=== PATIENT | female | born 2000 | race Caucasian/White ===

== ENCOUNTER → 2021-12-03 10:34 | Outpatient (CLI) | payer OTHER, SELFPAY ==
--- NOTE | 2021-12-03 10:40 | DI.US.S_ITS ---
PROCEDURE: US OB >= 14 WEEKS FETUS INDICATIONS: ROUNTINE SCAN OUTSIDE/PRIOR DATING DATA: Last menstrual period (LMP): May 30, 2022. LMP-based estimated date of delivery (MARCIA): March 06, 2022. First dating scan (date and location): December 03, 2021. Estimated date of delivery (MARCIA) from first dating scan: February 20, 2022. TECHNIQUE: Real-time scanning was performed of the fetus, with image documentation and biometric measurements. COMPARISON: None. FINDINGS: General: A single living intrauterine gestation is present. Presentation: Cephalic. Placenta: Placental position is anterior , without previa. Amniotic fluid index: 9.8 cm, normal range is 5-24 cm. Single deepest vertical pocket is 5.3 cm. heart rate: 128 beats per minute. Maternal cervical canal: 4.7 cm long. Normal lower limit is 2.5 cm. biometrics: Biparietal diameter: 7.6 cm Head circumference: 27.3 cm Abdominal circumference: 23.1 cm Femur length: 5 cm Composite gestational age from present scan: 28 weeks, 5 days Estimated weight and percentile: 1115 g +/-165 g; 79th percentile Anatomic survey: Neuro: Ventricles are non-dilated at less than 10 mm. Cisterna magna is normal at 3-11 mm. Cerebellum is normal in size and morphology. Nuchal skin fold: Not appropriate for gestational age. Face: Nose and lips, facial profile are normal. Spine: No evidence for spina bifida. Heart: 4-chambered heart is present, with normal ventricular outflow tracts. Diaphragm: Diaphragm is intact. Stomach: Left-sided stomach is present. Kidneys: No hydronephrosis. Normal is less than 5 mm in 2nd trimester, less than 7 mm in 3rd trimester. Cord: 3-vessel cord has orthotopic insertion. Bladder: Normal in size. Extremities: All 4 extremities identified. IMPRESSION: Live single intrauterine gestation as detailed above. We strive to produce accurate, complete, and clear reports of imaging services. To assist us in improving patient care, this report was composed using standard report templates and voice recognition software. Therefore, it may contain abnormal punctuation, insertions and/or omissions. Occasional wrong-word or sound-alike substitutions may occur. Though we review the report and make efforts to correct it, we do recommend that the report be read carefully in proper context to recognize any text inaccuracies. Dictated by: Juan Jose Danielle M.D. on 12/03/2021 at 13:41 Approved by: Juan Jose Danielle M.D. on 12/03/2021 at 13:44
== END ==
PROVIDERS: Referring Provider Family Medicine; Visit Provider Family Medicine
DX: Z34.93 Encounter for supervision of normal pregnancy, unspecified, third trimester (principal); Z3A.28 28 weeks gestation of pregnancy
CPT/HCPCS: 76811

== ENCOUNTER → 2021-12-05 11:44 | Outpatient (CLI) | payer OTHER, SELFPAY ==
[2021-12-05 15:02] LABS: GTT (PREG) 1 Hour PP 50gm Dose 114 mg/dL (76-139)
== END ==
PROVIDERS: Referring Provider Family Medicine; Visit Provider Family Medicine
DX: Z34.02 Encounter for supervision of normal first pregnancy, second trimester (principal); Z3A.28 28 weeks gestation of pregnancy
CPT/HCPCS: 36415; 82950

== ENCOUNTER → 2021-12-12 15:09 | Outpatient (CLI) | payer OTHER, SELFPAY ==
--- NOTE | 2022-01-02 08:45 | P.HOLT.S_ITS ---
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 & Results Date Patient Seen: 12/12/21 Requesting provider: Danielle Joseph Indication: Palpitations Duration of monitoring (days): 14 Diary information: There were 16 patient triggered events and 7 patient diary entries Patient triggered events were variably associated with (within 45 seconds) sinus rhythm, PACs, PVCs, SVT, ventricular bigeminy, Wenckebach block, and an ectopic atrial rhythm Patient diary events were associated with sinus rhythm only Data: Minimum heart rate identified was 49 beats per minute at 00:07 on 12/17/2021 Maximum sinus heart rate was 150 beats per minute at 11:16 on 12/20/2021 Less than 1% of identified beats were ventricular or supraventricular ectopic in origin, which would classify them as rare. There was 1 run of SVT that was 12 beats in duration at a rate of 141 beats per minute which might suggest atrial tachycardia rather than true SVT Ectopic atrial rhythm was also noted There were episodes of second-degree AV block Mobitz type 1 or Wenckebach block as well There were no pauses of 3 seconds or longer or episodes of atrial fibrillation identified on this study Impression: Patient with rare PVCs and even more rare PACs. Patient in addition had other variable rhythm abnormalities as noted above all extremely rare and not felt to be serious or concerning. Patient's sense of palpitations based on her triggered events are not clearly associated with any one particular dysrhythmia and certainly there is no evidence of any significant dysrhythmias on this study Clinical correlation suggested
== END ==
PROVIDERS: PCP Family Medicine; Referring Provider Family Medicine; Visit Provider Family Medicine
DX: R00.2 Palpitations (principal)
CPT/HCPCS: 93246; 93248

== ENCOUNTER 2021-12-22 14:37 | Outpatient (CLI) | payer OTHER, SELFPAY ==
--- NOTE | 2021-12-22 15:24 | PM.OBTRLD ---
Visit Information Visit Information Date of evaluation: 12/22/21 Primary OB Provider: Danielle Joseph On-call OB Provider: Katie Wagner Reason for Evaluation: Yes rupture of membranes Comments/Additional reasons for admission: 21 year old at 30+6 weeks gestation with concern for SROM. Denies contractions or bleeding, good FM. She has had more mucusy discharge today with a gush a couple hours prior to arrival and ongoing wetness. Vital Signs Vital Signs: T 37.1 BP 119/74 P 85 PFSH Medical History (Updated 12/22/21 @ 15:26 by Katie Wagner DO) Anxiety Asthma Depression Low vitamin D level PTSD (post-traumatic stress disorder) Surgical History (Updated 10/31/21 @ 14:55 by Kylee Blunt RN) History of wisdom tooth extraction Family History (Updated 11/01/21 @ 08:34 by Kylee Blunt RN) Mother Celiac disease Sister Kidney stones Grandfather Cancer Grandmother Cancer Grandfather Thyroid cancer Diabetes mellitus Unknown Cervical cancer Social History marital status: number of children: 0 household members: spouse lives independently: Yes housing: apartment pets and animals: Yes (Dogs, aware Toxoplasmosis) education level: college occupational status: employed current occupational exposures/hazards: No special swetha needs: No seatbelt use: always water heater temp set < 120 deg: Yes working smoke detector in home: Yes fire extinguisher in home: Yes carbon monox detector in home: Yes firearms in home: No do you feel safe at home: Yes Smoking Status: Never smoker second hand exposure: No alcohol intake: former substance use type: marijuana (occasional - anxiety) during the past year weight has: decreased > 10 lbs (15-20, stress) well-balanced diet: rarely or never daily servings fruits/ve-1 caffeine: No Type(s) of exercise: walking Evaluation Evaluation Baseline heart rate: 130 Variability: Moderate (11-25) monitor accelerations: Present Monitor Decelerations: Absent Category of Tracing: Reactive Diagnosis, Plan/Disposition Final Diagnosis (1) 30 weeks gestation of : Status: Acute Plan/Disposition Plan: Amnisure negative, NST reactive. Follow up in clinic as scheduled or return sooner if needed. OB Disposition: home
== END 2021-12-22 16:00 | disposition home or self-care (01) ==
LOC: OB 12-26 14:01
PROVIDERS: PCP Family Medicine; Referring Provider Family Medicine; Visit Provider Family Medicine
DX: Z03.71 Encounter for suspected problem with amniotic cavity and membrane ruled out (principal); Z3A.30 30 weeks gestation of pregnancy
CPT/HCPCS: 59025; 84112; G0378; G0379

== ENCOUNTER → 2022-01-30 14:25 | Outpatient (CLI) | payer OTHER, SELFPAY ==
[2022-01-31 15:22] LABS: Strep Grp B PCR NEG for Grp B Strep
== END ==
PROVIDERS: PCP Family Medicine; Visit Provider Family Medicine
DX: Z34.02 Encounter for supervision of normal first pregnancy, second trimester (principal); Z36.85 Encounter for antenatal screening for Streptococcus B; Z3A.36 36 weeks gestation of pregnancy
CPT/HCPCS: 87653

== ENCOUNTER 2022-02-07 11:37 | Observation (INO) | payer OTHER, SELFPAY ==
--- NOTE | 2022-02-07 17:16 | PM.OBTRLD ---
Visit Information Visit Information Date of evaluation: 02/07/22 Primary OB Provider: Danielle Joseph On-call OB Provider: Alen Card Reason for Evaluation: Yes rule out labor Comments/Additional reasons for admission: Taniya is a 21 yo MARCIA [birth year][address] [facility] with cramping after slipping and falling yesterday and landing on her derriere. She did not experience any abdominal trauma and since the slip she has had normal movement. She has started having cramping earlier today and presents for evaluation. She denies bleeding or leakage of fluid. [facility] Medical History (Updated 12/22/21 @ 15:26 by Katie Wagner DO) Anxiety Asthma Depression Low vitamin D level PTSD (post-traumatic stress disorder) Surgical History (Updated 10/31/21 @ 14:55 by Kylee Blunt RN) History of wisdom tooth extraction Family History (Updated 11/01/21 @ 08:34 by Kylee Blunt RN) Mother Celiac disease Sister Kidney stones Grandfather Cancer Grandmother Cancer Grandfather Thyroid cancer Diabetes mellitus Unknown Cervical cancer Social History marital status: number of children: 0 household members: spouse lives independently: Yes housing: apartment pets and animals: Yes (Dogs, aware Toxoplasmosis) education level: college occupational status: employed current occupational exposures/hazards: No special swetha needs: No seatbelt use: always water heater temp set < 120 deg: Yes working smoke detector in home: Yes fire extinguisher in home: Yes carbon monox detector in home: Yes firearms in home: No do you feel safe at home: Yes Smoking Status: Never smoker second hand exposure: No alcohol intake: former substance use type: marijuana (occasional - anxiety) during the past year weight has: decreased > 10 lbs (15-20, stress) well-balanced diet: rarely or never daily servings fruits/ve-1 caffeine: No Type(s) of exercise: walking Evaluation Evaluation Baseline heart rate: 135 Variability: Moderate (11-25) monitor accelerations: Present Monitor Decelerations: Absent Contraction Frequency (minutes): 3 Uterine Contraction Intensity: Mild Category of Tracing: Reactive Status: Category l Cervical dilation (cm): 0 Cervical effacement (%): 60 station: -1 Diagnosis, Plan/Disposition Plan/Disposition Plan: During her 2 hour period of observation, her contractions have subsided and resolved. NST is reassuring and the patient was discharged with instructions to home and follow-up with her primary OB provider, Dr. Danielle Joseph. OB Disposition: home
== END 2022-02-07 13:49 | disposition home or self-care (01) ==
PROVIDERS: Admitting Provider Family Medicine; PCP Family Medicine; Referring Provider Family Medicine; Visit Provider Family Medicine
DX: O47.1 False labor at or after 37 completed weeks of gestation (principal); W01.0XXA Fall on same level from slipping, tripping and stumbling without subsequent striking against object, initial encounter; Z3A.37 37 weeks gestation of pregnancy
CPT/HCPCS: 59025; 59050; G0378; G0379

== ENCOUNTER 2022-03-05 15:32 | Inpatient (IN) | payer OTHER, SELFPAY ==
--- NOTE | 2022-03-05 15:41 | PM.OBTRLD ---
Visit Information Visit Information Date of evaluation: 03/05/22 Primary OB Provider: Danielle Joseph Reason for Evaluation: Yes other Comments/Additional reasons for admission: 21yo at 41w2d here for NST for post-dates. No vaginal bleeding, LOF, contractions. Feeling baby move regularly. [facility] Medical History (Updated 03/05/22 @ 15:42 by Danielle Joseph MD) Anxiety Asthma Depression Low vitamin D level PTSD (post-traumatic stress disorder) Surgical History (Updated 10/31/21 @ 14:55 by Kylee Blunt, RN) History of wisdom tooth extraction Family History (Updated 11/01/21 @ 08:34 by Kylee Blunt, RN) Mother Celiac disease Sister Kidney stones Grandfather Cancer Grandmother Cancer Grandfather Thyroid cancer Diabetes mellitus Unknown Cervical cancer Social History marital status: number of children: 0 household members: spouse lives independently: Yes housing: apartment pets and animals: Yes (Dogs, aware Toxoplasmosis) education level: college occupational status: employed current occupational exposures/hazards: No special swetha needs: No seatbelt use: always water heater temp set < 120 deg: Yes working smoke detector in home: Yes fire extinguisher in home: Yes carbon monox detector in home: Yes firearms in home: No do you feel safe at home: Yes Smoking Status: Never smoker second hand exposure: No alcohol intake: former substance use type: marijuana (occasional - anxiety) during the past year weight has: decreased > 10 lbs (15-20, stress) well-balanced diet: rarely or never daily servings fruits/ve-1 caffeine: No Type(s) of exercise: walking Evaluation Evaluation Baseline heart rate: 120 Variability: Moderate (11-25) monitor accelerations: Present Monitor Decelerations: Absent Category of Tracing: Reactive Diagnosis, Plan/Disposition Final Diagnosis (1) Post-dates : Status: Acute Plan/Disposition Plan: 21yo at 41w2d here for NST for post-dates. NST reactive. Stable for d/c home. Plan on IOL tomorrow morning. OB Disposition: home
--- NOTE | 2022-03-05 15:47 | DI.US.S_ITS ---
PROCEDURE: US OB FOLLOW UP INDICATIONS: growth, KEO OUTSIDE/PRIOR DATING DATA: Last menstrual period (LMP): 05/30/2022. LMP-based estimated date of delivery (MARCIA): 03/06/2022. First dating scan (date and location): 12/03/2021. Estimated date of delivery (MARCIA) from first dating scan: 02/20/2022. TECHNIQUE: Real-time scanning was performed of the fetus, with image documentation and biometric measurements. COMPARISON: 12/03/2021. FINDINGS: General: A single living intrauterine gestation is present. Presentation: Cephalic. Placenta: Placental position is anterior, without previa. Amniotic fluid index: 16.3 cm, normal range is 5-24 cm. Single deepest vertical pocket is 6.4 cm. heart rate: 127 beats per minute. Maternal cervical canal: Not seen. biometrics: Biparietal diameter: 9.6 cm, 39 weeks 2 days Head circumference: 35.9 cm, could not be calculated. Abdominal circumference: 35.2 cm, 39 weeks 1 day Femur length: 7.6 cm, 38 weeks 4 days Clinically estimated gestational age: 41 weeks 6 days Composite gestational age from present scan: 39 weeks 0 days Estimated weight: 3766 g IMPRESSION: 1. So living intrauterine at 39 weeks 0 days based on today's ultrasound. Estimated weight 3766 g. Cephalic position. 2. Normal placenta and amniotic fluid. We strive to produce accurate, complete, and clear reports of imaging services. To assist us in improving patient care, this report was composed using standard report templates and voice recognition software. Therefore, it may contain abnormal punctuation, insertions and/or omissions. Occasional wrong-word or sound-alike substitutions may occur. Though we review the report and make efforts to correct it, we do recommend that the report be read carefully in proper context to recognize any text inaccuracies. Dictated by: Nicholas Clark M.D. on 03/05/2022 at 16:48 Approved by: Nicholas Clark M.D. on 03/05/2022 at 16:55
[2022-03-05 17:02] LABS: Add Manual Diff / Slide Review NO; Basophils Absolute Auto 100 /uL (0-100); Basophils Percent Auto 0.9 % (0-2); Eosinophils Absolute Auto 0 /uL (0-450); Eosinophils Percent Auto 0.5 % (2-4); Hematocrit 30.6 % (36-46); Hemoglobin 10.6 g/dL (12.0-16.0); Lymphocytes Absolute Auto 1800 /uL (1100-4500); Lymphocytes Percent Auto 24.3 % (25-40); Mean Corpuscular HGB Conc 34.5 % (30-36); Mean Corpuscular Hemoglobin 29.5 PG (26-34); Mean Corpuscular Volume 85.6 fL (80-100); Monocytes Absolute Auto 500 /uL (0-900); Monocytes Percent Auto 6.9 % (3-14); Neutrophils Absolute Auto 4900 /uL (1500-7000); Neutrophils Percent Auto 67.4 % (50-75); Platelet Count 196 X10^3/uL (150-400); Red Blood Cell Count 3.58 X10^6/uL (4.0-5.2); Red Cell Distribution Width 13.3 % (11.6-14.8); White Blood Cell Count 7.2 X10^3/uL (4.5-11.0)
[2022-03-05 17:14] LABS: Alanine Aminotransferase 13 IU/L (<35); Albumin 3.6 g/dL (3.5-5.0); Albumin Globulin Ratio 1.1 (1.0-2.8); Alkaline Phosphatase 148 U/L (38-126); Aspartate Aminotransferase 21 IU/L (14-36); BUN Creatinine Ratio 9.8 (6-22); Bilirubin Total 0.4 mg/dL (0.2-1.3); Blood Urea Nitrogen 4 mg/dL (7-17); Calcium 8.5 mg/dL (8.4-10.2); Carbon Dioxide 23 mmol/L (22-32); Chloride 107 mmol/L (98-107); Estimated Glomerular Filt Rate > 60 mL/min (>60); Globulin 3.2 g/dL (1.7-4.1); Glucose 67 mg/dL (70-100); HEMOLYSIS 24 (0-50); Potassium 3.3 mmol/L (3.4-5.1); Sodium 138 mmol/L (137-145); Total Protein 6.8 g/dL (6.3-8.2)
[2022-03-05 17:24] VITALS: BP 155/92; PULSE 72
[2022-03-05] MEDS: LABETALOL 100 MG TABLET PO (17:24)
[2022-03-05 17:58] LABS: Creatinine Urine Random 35.8 mg/dL; Protein (Total) Urine Random 18 mg/dL (0-12)
--- NOTE | 2022-03-05 20:34 | PM.OBHP.IH.1 ---
OB HPI Date/Time Date of admission: 03/05/22 Date Patient Seen: 03/05/22 Time Patient Seen: 20:35 History of Present Condition Chief complaint: NST MARCIA Calculator Estimated Delivery Date Method Current WG Current Estimate 02/24/22 Manual 41w 2d Final MARCIA - MERI Other Estimates 03/06/22 LMP (Uncertain) 39w 6d 02/24/22 Ultrasound #1 41w 2d Estimated Gestational Age (weeks): 41w2d : 1 Para: 0 Narrative: Pt is a 21yo at 41w2d who presented for post-dates NST. She is feeling her baby move regularly. Mild intermittent cramping. No vaginal bleeding, LOF. She denies headaches, vision changes, RUQ pain. She did have significant swelling 2 days ago, now improved. The pt had an uncomplicated . care: good care, initiated at week # and pounds weight gain Dating criteria OB: based on 1st trimester US only Ultrasounds: normal 1st trimester US and normal mid trimester US Obstetrical complications: none Medical complications OB: none Preadmission Labs Last OB Lab Results: Hematocrit 30.6 % (36-46) L 03/05/22 16:40 Hemoglobin 10.6 g/dL (12.0-16.0) L 03/05/22 16:40 Glucose 1 Hour 114 mg/dL (76-139) 12/05/21 12:50 Group B Streptococcus (PCR) Neg for grp b strep 01/30/22 14:25 -: Chlamydia screen: negative, Gonorrhea screen: negative and Urine: negative -: PAP smear: Normal External Labs Blood type OB HPI: O (+) positive -: Antibody screen: negative, HBsAG: negative, HIV: negative, RPR/VDLR: negative, Cystic fibrosis screen: negative, GBS status: negative and Urine: negative -: Rubella: immune and Varicella: not immune HCAB: negative Evaluation Evaluation Baseline heart rate: 120 Variability: Moderate (11-25) monitor accelerations: Present Monitor Decelerations: Absent Status: Category l PFSH Medical History (Updated 03/05/22 @ 15:42 by Danielle Joseph MD) Anxiety Asthma Depression Low vitamin D level PTSD (post-traumatic stress disorder) Surgical History (Updated 10/31/21 @ 14:55 by Kylee M Blunt, RN) History of wisdom tooth extraction Family History (Updated 11/01/21 @ 08:34 by Kylee Blunt RN) Mother Celiac disease Sister Kidney stones Grandfather Cancer Grandmother Cancer Grandfather Thyroid cancer Diabetes mellitus Unknown Cervical cancer Social History marital status: number of children: 0 household members: spouse lives independently: Yes housing: apartment pets and animals: Yes (Dogs, aware Toxoplasmosis) education level: college occupational status: employed current occupational exposures/hazards: No special swetha needs: No seatbelt use: always water heater temp set < 120 deg: Yes working smoke detector in home: Yes fire extinguisher in home: Yes carbon monox detector in home: Yes firearms in home: No do you feel safe at home: Yes Smoking Status: Never smoker second hand exposure: No alcohol intake: former substance use type: marijuana (occasional - anxiety) during the past year weight has: decreased > 10 lbs (15-20, stress) well-balanced diet: rarely or never daily servings fruits/ve-1 caffeine: No Type(s) of exercise: walking Meds Home Medications and Allergies Home Medications Medication Instructions Recorded Confirmed Type terbinafine HCl 1 % topical cream 1 applic topical BID rash 2 weeks 10/15/21 02/20/22 Rx #15 grams prenat.vits,alessandra,fpx-dorx-pwyzq 1 tab PO DAILY 11/01/21 02/20/22 History double electric breast pump and #1 ea 12/05/21 02/20/22 Rx supplies hydrocortisone 1 % topical ointment 1 applic topical BID PRN rash 12/05/21 02/20/22 Rx #453.6 grams Allergies Allergy/AdvReac Type Severity Reaction Status Date / Time Sulfa (Sulfonamide Allergy Intermediate throat Verified 02/20/22 11:38 Antibiotics) swelling OB Exam Narrative Exam Narrative: Gen: NAD, sitting comfortably in bed, appears well CV: RRR, no murmurs Resp: clear to auscultation bilaterally Abd: soft, nontender, nondistended Ext: trace edema Neuro: 1+ patellar reflexes, no clonus Objective Labs Result Diagrams: 03/05/22 16:40 03/05/22 16:40 Labs: Laboratory Results - last 24 hr 03/05/22 03/05/22 03/05/22 16:20 16:40 16:40 WBC 7.2 RBC 3.58 L Hgb 10.6 L Hct 30.6 L MCV 85.6 MCH 29.5 MCHC 34.5 RDW 13.3 Plt Count 196 Neut % (Auto) 67.4 Lymph % (Auto) 24.3 L [place] % (Auto) 6.9 Eos % (Auto) 0.5 L Baso % (Auto) 0.9 Neut # (Auto) 4900 Lymph # (Auto) 1800 [place] # (Auto) 500 Eos # (Auto) 0 Baso # (Auto) 100 Sodium 138 Potassium 3.3 L Chloride 107 Carbon Dioxide 23 BUN 4 L Creatinine 0.41 L Estimated GFR > 60 BUN/Creatinine Ratio 9.8 Glucose 67 L Calcium 8.5 Total Bilirubin 0.4 AST 21 ALT 13 Alkaline Phosphatase 148 H Total Protein 6.8 Albumin 3.6 Globulin 3.2 Albumin/Globulin Ratio 1.1 U Random Total Protein 18 H Urine Creatinine 35.8 Protein/Creatinin Ratio 0.50 Assessment and Plan Assessment and Plan Assessment and Plan narrative: 21yo at 41w2d here for NST for postdates, found to elevated BP with elevated protein/creatinine ratio indicative of pre-eclampsia without severe features. No evidence HELLP. Did receive one dose of PO Labetalol prior to lab work returning due to BPs > 150, with good response. Due to staffing, cannot induce patient tonight. Will plan to keep patient in the hospital, and induce in the morning when staffing allows. Will continue to monitor BPs, q6hr NSTs. If BPs rising to > 160/110, will need to initiate MgSO4 and treat BP. Discussed with patient risks of untreated pre-eclampsia. She understands risks. GBS negative, Rh positive.
[2022-03-06 01:36] LABS: Add Manual Diff / Slide Review NO; Basophils Absolute Auto 0 /uL (0-100); Basophils Percent Auto 0.4 % (0-2); Eosinophils Absolute Auto 0 /uL (0-450); Hematocrit 28.4 % (36-46); Hemoglobin 9.7 g/dL (12.0-16.0); Lymphocytes Absolute Auto 2100 /uL (1100-4500); Lymphocytes Percent Auto 22.3 % (25-40); Mean Corpuscular HGB Conc 34.2 % (30-36); Mean Corpuscular Hemoglobin 29.5 PG (26-34); Mean Corpuscular Volume 86.4 fL (80-100); Monocytes Absolute Auto 400 /uL (0-900); Monocytes Percent Auto 4.8 % (3-14); Neutrophils Absolute Auto 6800 /uL (1500-7000); Neutrophils Percent Auto 72.5 % (50-75); Platelet Count 205 X10^3/uL (150-400); Red Blood Cell Count 3.29 X10^6/uL (4.0-5.2); White Blood Cell Count 9.3 X10^3/uL (4.5-11.0)
[2022-03-06 05:27] LABS: COVID19 -Nasal RAPID Negative (Negative)
--- NOTE | 2022-03-06 07:30 | PM.OBPNLAB ---
Date/Time Date Patient Seen: 03/06/22 Time Patient Seen: 07:35 Pelvic Exam Dilation (cm): 3 Effacement (%): 70 station: 0 Status status: Category l Heart Rate Baseline: 120 Monitor Accelerations: Present Monitor Decelerations: Absent Monitor Variability: Moderate Assessment and Plan Comments: 21yo at 41w2d here for NST for postdates, found to elevated BP with elevated protein/creatinine ratio indicative of pre-eclampsia without severe features.? No evidence HELLP.? Received one dose of PO Labetalol yesterday. BPs have been in good range overnight. GBS negative, Rh positive. - Expectant management, anticipate - FHT reassuring - Start pitocin, titrate as tolerated - Desires natural methods for pain control - GBS negative, no prophylaxis indicated - Continue close monitoring BPs
[2022-03-06] MEDS: OXYTOCIN PREMIX 30 UNIT/500 ML PLAST..BAG IV (11:25)
--- NOTE | 2022-03-06 18:52 | PM.OBPNLAB ---
Date/Time Date Patient Seen: 03/06/22 Time Patient Seen: 18:52 Pain Control Pain control: tolerating well Status status: Category l Heart Rate Baseline: 120 Monitor Accelerations: Present Monitor Decelerations: Absent Monitor Variability: Moderate Assessment and Plan Comments: 21yo at 41w2d here for NST for postdates, found to elevated BP with elevated protein/creatinine ratio indicative of pre-eclampsia without severe features.? No evidence HELLP.? Received one dose of PO Labetalol yesterday.? BPs have been in good range overnight.? On pitocin, titrated to maximum of 3 mU. This unfortunately had to be stopped due to staffing. Will plan to restart IOL once staffing allows, hopefully later this evening. GBS negative, Rh positive.
[2022-03-07] VITALS (7 sets, daily range): BP systolic 111–148; BP diastolic 59–84; PULSE 65–92; RESP 11–26; TEMP 37.1; O2SAT 100
[2022-03-07] MEDS: OXYTOCIN PREMIX 30 UNIT/500 ML PLAST..BAG IV (02:07)
--- NOTE | 2022-03-07 05:38 | PM.OBPNLAB ---
Date/Time Date Patient Seen: 03/07/22 Time Patient Seen: 05:38 Pain Control Pain control: tolerating well Pelvic Exam Dilation (cm): 5 Effacement (%): 50 station: -1 Comments: as per nursing Contractions Contraction frequency (min): 3 Status status: Category l Heart Rate Baseline: 120 Monitor Accelerations: Present Monitor Decelerations: Prolonged Monitor Variability: Moderate Assessment and Plan Comments: 21yo at 41w2d here for NST for postdates, found to elevated BP with elevated protein/creatinine ratio indicative of pre-eclampsia without severe features.? No evidence HELLP.? Received one dose of PO Labetalol the day of admission. BPs since have been in excellent range. IOL initially delayed due to staffing issues. On low dose pitocin overnight, up to 5mU. Now with prolonged decel to the 60s for 3 minutes, resolved with LR bolus and position changes to the sides. FHT now recovered and reassuring again. GBS negative, Rh positive. - Close monitoring, discussed risks of with the pt - Will hold any additional pitocin for now, continue position changes with the patient. Will attempt to restart pitocin in approximately 1 hour or consider AROM. - Desires natural methods for pain control - Continue close monitoring BPs
--- NOTE | 2022-03-07 07:13 | PM.PREOP ---
Pre-operative Note COVID-19 COVID-19 status: Negative Result date/Date tested (Pos, Neg/Pending): 03/05/22 Interval Note History & Physical reviewed/Exam performed by Physician: Yes Changes to H&P: No
--- NOTE | 2022-03-07 07:17 | PM.OBPNLAB ---
Date/Time Date Patient Seen: 03/07/22 Time Patient Seen: 07:17 Pain Control Pain control: tolerating well Pelvic Exam Dilation (cm): 4 Effacement (%): 70 station: -1 Contractions Contraction frequency (min): 5 Status status: Category l Heart Rate Baseline: 120 Monitor Accelerations: Absent Monitor Decelerations: Absent Monitor Variability: Moderate Assessment and Plan Comments: 21yo at 41w4d here for NST for postdates, found to elevated BP with elevated protein/creatinine ratio indicative of pre-eclampsia without severe features.? No evidence HELLP.? Received one dose of PO Labetalol the day of admission.? BPs since have been in excellent range.? Have been unable to titrate pitocin effectively due to nonreassuring heart tones. After recent prolonged deceleration, the pt expressed interest in a primary . Discussed trial of pitocin again vs AROM with the patient in detail. She prefers to avoid the risk and wishes to proceed with primary . The risks vs benefits of surgery were discussed in detail. Risks including but no limited to bleeding/hemorrhage, infection, injury to other organs such as the bowel/bladder, and injury to the fetus. The pt agrees to blood transfusion if medically necessary. All questions were answered, and the pt signed consent which was placed in the chart. She will receive 2g Ancef prior to surgery. SCDs will be placed.
--- NOTE | 2022-03-07 07:59 | SUR.OPER ---
Supine on Padded OR bed, head on pillow, safety belt at thigh, arms secured on padded arm boards at <90 degrees abduction. Bump under right buttock. Legs uncrossed with pillow under knees, gel pad to heels, tape over blanket to lower legs.
[2022-03-07] MEDS: CEFAZOLIN 2 GM IN 0.9 % NACL 100 ML IV (08:08)
--- NOTE | 2022-03-07 08:33 | SUR.OPER ---
LIVE BABY BOY TOB 0823. BABY, BLOOD AND DAD LEFT OR WITH OB RN.
--- NOTE | 2022-03-07 08:55 | SUR.OPER ---
CORD BLOOD AND PLACENTA TO LABOR AND DELIVERY
--- NOTE | 2022-03-07 09:19 | PM.OBCS.1 ---
Operative Date/Time/Diagnoses Date of procedure: 03/08/22 Time of procedure: 08:15 Pre-op diagnosis: 41w4d gestation GBS negative Rh positive Nonreassuring heart tones Post-op diagnosis: same Procedure & Clinicians Procedure: Primary Same procedure as scheduled: Yes Indications: Nonreassuring heart tones Surgeon: Danielle Joseph Environmental Services Project Manager: Katie Wagner Anesthesia Type: Spinal Operative Notes Findings: Normal uterus, ovaries, and tubes Closure Type: primary Specimen(s): cord blood Intraoperative meds administered: Duramorph and Pitocin Applied: Catheter Estimated Blood Loss (mL): 750 Blood products transfused: none Procedure in detail: OPERATIVE COURSE: The patient was taken to the operating room where spinal anesthesia was placed. She was then prepared and draped in the normal sterile fashion in the dorsal supine position with a leftward tilt. Anesthesia was tested and found to be adequate. A Pfannensteil skin incision was then made with the scalpel and carried through to the underlying layer of fascia with the scalpel. The fascia was incised in the midline and the incision extended laterally with the Lovell scissors. The superior aspect of the fascial incision was then grasped with Karen clamps, elevated with the help of the neurosurgical physician assistant, and the underlying rectus muscles dissected off bluntly and sharply where needed. Attention was then turned to the inferior aspect of the incision which, in a similar fashion, was grasped, tented up with Karen clamps, and the rectus muscle dissected off bluntly and sharply with Lovell scissors. The rectus muscles were then in the midline, and the peritoneum was identified and entered bluntly. The peritoneal incision was then extended with good visualization of the bladder. Retraction was provided by the neurosurgical physician assistant. The bladder blade was then inserted and the vesicouterine peritoneum identified, grasped with pick-ups and entered sharply with the Metzenbaum scissors. The incision was then extended laterally and the bladder flap created digitally. The bladder blade was then reinserted and the lower uterine segment incised in a transverse fashion with the scalpel, with the neurosurgical physician assistant providing suction. The uterine incision was then extended superolaterally by pulling superolaterally on both sides. Membranes were ruptured and fluid was clear. The bladder blade was removed the infant's head was flexed out of OA position and delivered atraumatically, with fundal pressure by the neurosurgical physician assistant. The nose and mouth were suctioned with bulb suction and the cord was clamped and cut. The infant was handed off to the waiting nursing staff. Cord blood was collected for Rh status. The placenta was then delivered with gentle cord traction. The uterus was then exteriorized and cleared of all clots and debris. The uterine incision was repaired with O Vicryl in a running, locked fashion. A second layer of the same suture was used to obtain excellent hemostasis. The uterus was returned to the abdomen. The gutters were cleared of all clots. Hysterotomy was investigated and found to be hemostatic. The bladder flap was closed with 2-O Chromic. The peritoneum was closed with 3-O Vicryl. The fascia was reapproximated with O Vicryl in a running fashion. The subcutaneous tissue was reapproximated with 3-O Vicryl. The skin was closed with 4-O Vicryl. The neurosurgical physician assistant helped with retraction during closures. SPONGE AND NEEDLE COUNTS: Correct x3. DRESSING: Aquacel ANTICOAGULATION: SCDs applied prior to Surgery Preop antibiotics given (see MAR). The patient was taken to recovery room having tolerated procedure well. Complications: none [place] Baby 1: Infant Gender: Male Presentation: vertex Position: Left Occiput Anterior Placental Delivery Description: Spontaneous Cord Vessel Description: 3 Vessels score (1 min): 9 score (5 min): 9 weight: 8 lb 7.452 oz Post-operative Condition: stable Disposition: PACU Aftercare: routine postop
[2022-03-07] MEDS: MEPERIDINE 50 MG/ML INJ 25 MG IV (09:20)
[2022-03-07] MEDS: ONDANSETRON 4 MG/2 ML INJ IV (09:21)
[2022-03-07] MEDS: LACTATED RINGERS 1,000 ML 100 ML IV (11:00)
[2022-03-07] MEDS: OXYCODONE IR 5 MG TABLET PO ×2 (11:12→22:03)
[2022-03-07] MEDS: KETOROLAC 30 MG/ML VIAL IV ×2 (15:19→21:59)
[2022-03-07] MEDS: LANOLIN OINT 7 GM 1 APPLIC TOP (22:02)
[2022-03-08] MEDS: KETOROLAC 30 MG/ML VIAL IV (03:39)
[2022-03-08] MEDS: OXYCODONE IR 5 MG TABLET PO ×4 (03:41→22:56)
[2022-03-08 07:32] LABS: Add Manual Diff / Slide Review NO; Basophils Absolute Auto 0 /uL (0-100); Basophils Percent Auto 0.2 % (0-2); Eosinophils Absolute Auto 0 /uL (0-450); Eosinophils Percent Auto 0.1 % (2-4); Hematocrit 24.3 % (36-46); Hemoglobin 8.4 g/dL (12.0-16.0); Lymphocytes Absolute Auto 1500 /uL (1100-4500); Lymphocytes Percent Auto 17.6 % (25-40); Mean Corpuscular HGB Conc 34.5 % (30-36); Mean Corpuscular Hemoglobin 29.7 PG (26-34); Mean Corpuscular Volume 86.1 fL (80-100); Monocytes Absolute Auto 500 /uL (0-900); Monocytes Percent Auto 5.8 % (3-14); Neutrophils Absolute Auto 6400 /uL (1500-7000); Neutrophils Percent Auto 76.3 % (50-75); Platelet Count 152 X10^3/uL (150-400); Red Blood Cell Count 2.82 X10^6/uL (4.0-5.2); Red Cell Distribution Width 13.1 % (11.6-14.8); White Blood Cell Count 8.4 X10^3/uL (4.5-11.0)
--- NOTE | 2022-03-08 09:11 | PM.OBPN.1 ---
Subjective - OB Subjective Date Patient Seen: 03/08/22 Time Patient Seen: 07:45 Interval history: The pt reports she is feeling well this morning. She denies specific concerns. She is passing flatus. She has ambulated minimally. Her garcia remains in place and she has not yet urinated. Her lochia is decreasing appropriately. Her baby is well, and she denies any nipple pain. Her pain is well controlled. Exam Vital Signs (past 8 hours): Oxygen Delivery Method Room Air Resp Auscultation: clear to auscultation bilaterally Cardio Rate: regular rate Rhythm: regular rhythm Heart Sounds: S1 normal, S2 normal and no murmurs GI Inspection: non-distended and incision (dressing c/d/i) Palpation: soft, No guarding and tender (appropriately tender) Auscultation: normal bowel sounds Other: fundus firm and below the umbilicus Extrem Right upper extremity: no edema Objective Labs Result Diagrams: 03/08/22 05:00 03/05/22 16:40 Labs: Laboratory Results - last 24 hr 03/08/22 05:00 WBC 8.4 RBC 2.82 L Hgb 8.4 L Hct 24.3 L MCV 86.1 MCH 29.7 MCHC 34.5 RDW 13.1 Plt Count 152 Neut % (Auto) 76.3 H Lymph % (Auto) 17.6 L [place] % (Auto) 5.8 Eos % (Auto) 0.1 L Baso % (Auto) 0.2 Neut # (Auto) 6400 Lymph # (Auto) 1500 [place] # (Auto) 500 Eos # (Auto) 0 Baso # (Auto) 0 Assessment & Plan Assessment and Plan (1) Post-dates : Status: Acute Plan Comments: 21yo POD#1 s/p primary for nonreassuring FHT. Pt is doing well. - Normal postop/ care - support - Garcia out this morning, encourage ambulation Time Spent With Patient Time: Total time spent is greater than 50% in coordination of care (as documented) at patient's floor/unit and/or counseling patient: Time with patient: less than 15 minutes
[2022-03-08] MEDS: PRENATAL VIT,CALC/IRON/FOLIC 1 TABLET 1 TAB PO (09:20)
[2022-03-08] MEDS: DOCUSATE 100 MG CAPSULE 200 MG PO (09:20)
[2022-03-08] MEDS: IBUPROFEN 600 MG TABLET PO ×3 (09:20→22:55)
[2022-03-08] MEDS: ACETAMINOPHEN 325 MG TABLET 650 MG PO ×2 (14:42→22:49)
[2022-03-09] MEDS: IBUPROFEN 600 MG TABLET PO ×2 (06:06→13:04)
[2022-03-09] MEDS: OXYCODONE IR 5 MG TABLET PO ×2 (06:07→13:04)
[2022-03-09] MEDS: ACETAMINOPHEN 325 MG TABLET 650 MG PO ×2 (06:07→13:05)
[2022-03-09] MEDS: DOCUSATE 100 MG CAPSULE 200 MG PO (10:37)
[2022-03-09] MEDS: PRENATAL VIT,CALC/IRON/FOLIC 1 TABLET 1 TAB PO (10:37)
[2022-03-09 11:00] VITALS: BP 138/90; PULSE 96; RESP 18; TEMP 36.3
--- NOTE | 2022-03-09 11:03 | PM.OBDS.1 ---
Discharge Providers Provider Date of admission: 03/05/22 15:32 Discharge Date: 03/09/22 Primary care physician: Danielle Joseph MD Consults: 03/07/22 09:42 Consult to Cotton Picker Operator Routine Comment: Discharge provider: Danielle Joseph MD Summary Hospital Course Date Patient Seen: 03/09/22 Time Patient Seen: 11:03 Diagnoses: 41w4d gestation GBS negative Rh positive Pre-eclampsia without severe features Nonreassuring heart tones Hospital Course: The pt presented for post-dates NST. She was diagnosed with pre-eclampsia without severe features based on multiple elevated BPs and elevated protein/creatinine ratio. She received one dose of PO Labetalol, and her BPs remained in excellent range the remainder of her hospitalization. The pts IOL was delayed due to staffing. Pitocin was initiated, and titrated to a maximum of 3mU and then stopped due to variable decels. It was initiated later in the evening when staffing allowed. It was titrated to a maximum of 5mU and then stopped due to intermittent late decels and prolonged decel. The pt elected for primary for nonreassuring heart tones, rather than continuing to attempt IOL. She had not made any significant cervical change. The pt underwent primary , with delivery of viable baby boy, without complications. She tolerated surgery well. , there were no complications. At the time of discharge, she was voiding, ambulating, and passing flatus without difficulty. Her pain was well controlled. She is with good latch. Her lochia is decreasing appropriately. She will f/u in 1 week for incision check in clinic. Peripartum Data Infant Delivery Method: Section Procedures: Primary complications: none [place] 1: Gender: Male Disposition of : home Discharge Diagnosis (1) Post-dates : Status: Acute (2) S/P : Status: Acute (3) Pre-eclampsia: Status: Acute Status at Discharge Cognitive/behavioral status at discharge: oriented Functional status at discharge: independent ambulation Overall status at discharge: patient is progressing back to baseline Time Spent with Patient Time attestation: Total time spent providing and/or coordinating discharge services: Time spent: Greater than 30 minutes Objective Labs Result Diagrams: 03/08/22 05:00 03/05/22 16:40 Exam Vital Signs (past 8 hours): Oxygen Delivery Method Room Air Resp Auscultation: clear to auscultation bilaterally Cardio Rate: regular rate Rhythm: regular rhythm Heart Sounds: S1 normal, S2 normal and no murmurs GI Inspection: non-distended and incision (dressing c/d/i) Palpation: soft, No guarding and tender (appropriately tender) Auscultation: normal bowel sounds Other: fundus firm and below the umbilicus Extrem Right upper extremity: no edema Discharge Plan Discharge Plan Patient Disposition: Home Discharge orders & Medications Prescriptions: New acetaminophen 325 mg Tablet 650 mg PO Q6H PRN (Reason: Fever/Mild Pain (1-3)) Qty: 30 0RF docusate sodium 100 mg Capsule 200 mg PO DAILY Qty: 30 0RF ibuprofen 600 mg Tablet 600 mg PO Q6H PRN (Reason: Fever/Mild Pain (1-3)) Qty: 30 0RF oxycodone 5 mg Tablet 5 mg PO Q4H PRN (Reason: Pain, Moderate (4-6)) Qty: 30 0RF Continued hydrocortisone 1 % ointment 1 applic topical BID PRN (Reason: rash) Qty: 453.6 2RF terbinafine HCl 1 % cream 1 applic topical BID 14 Days Qty: 15 1RF Rx Instructions: Use for 2 weeks or until rash resolves. prenat.vits,alessandra,[id number] Tablet 1 tab PO DAILY (DME) double electric breast pump and supplies unknown See Rx Instructions Rx Instructions: As directed Follow up/Referrals: Danielle Joseph MD [Primary Care Provider] - 1 Week (Will schedule at baby's appointment on Friday, 03/11.) Diet/Activity/Treatments Diet: Diet as Tolerated and Regular Skin/Wound/Dressing Care Report to your healthcare provider any signs of infection, such as:: chills, fever, increased pain and unusual drainage Visit Report/Discharge Packet Instructions: DI for Visit Report Forms: Patient Portal/API, Stroke Signs & Symptoms Discharge Data Primary Care Provider: Danielle Joseph
== END 2022-03-09 13:15 | disposition home or self-care (01) | DRG 788 ==
PROVIDERS: Admitting Provider Family Medicine; PCP Family Medicine; Referring Provider Family Medicine; Visit Provider Family Medicine
PROC: (CPT 59514; principal; 2022-03-07 07:45)
DX: O48.0 Post-term pregnancy (principal); O14.04 Mild to moderate pre-eclampsia, complicating childbirth; O76 Abnormality in fetal heart rate and rhythm complicating labor and delivery; Z3A.41 41 weeks gestation of pregnancy; Z37.0 Single live birth; Z20.822 Contact with and (suspected) exposure to COVID-19
CPT/HCPCS: 36415; 59050; 59514; 59515; 76816; 80053; 82570; 84156; 85025; 86850; 86900; 86901; 87635; C9803; G0379; J0690; J1885; J2175; J2274; J2405; J2590

== ENCOUNTER 2022-03-16 21:41 | Emergency (ER) | payer OTHER, SELFPAY ==
[2022-03-16 21:52] VITALS: BP 152/84; PULSE 89; RESP 20; TEMP 36.7; O2SAT 97; BMI 22.5
[2022-03-16 22:34] LABS: Bacteria Urine Few (2-10); RBC Urine 0-1/HPF (0-5/HPF); Squamous Epithelial Cell Urine 1-5 /HPF (0-5/HPF); WBC Urine 10-30/HPF (0-5/HPF)
[2022-03-16 22:35] LABS: Culture Indicated Urine Specimen Cultured
--- NOTE | 2022-03-16 22:35 | ED_ITS ---
HPI - General Adult General Chief complaint: Hypertension Stated complaint: High BP, 177/103 Time Seen by Provider: 03/16/22 22:18 Source: patient Mode of arrival: Ambulatory History of Present Illness HPI narrative: This young woman had a baby on March 07 by for the indication of preeclampsia. She started taking labetalol 100 b.i.d. and then this last Friday the this was increased to 200 mg b.i.d.. She really has no symptoms other than just general fatigue soreness at her incision site and breast engorgement. She says she feels tired and has a very mild headache. No vision disturbance. No vomiting, no abdominal pain. She noticed that her blood pressure was quite high this evening and called the on-call provider who recommended she come to the hospital for further evaluation. Related Data Home Medications Medication Instructions Recorded Confirmed prenat.vits,alessandra,[id number] 1 tab PO DAILY 11/01/21 03/06/22 double electric breast pump and 03/06/22 03/06/22 supplies Previous Rx's Medication Instructions Recorded terbinafine HCl 1 % topical cream 1 applic topical BID rash 2 weeks 10/15/21 #15 grams hydrocortisone 1 % topical ointment 1 applic topical BID PRN rash 12/05/21 #453.6 grams acetaminophen 325 mg tablet 650 mg PO Q6H PRN Fever/Mild Pain 03/09/22 (1-3) #30 tabs docusate sodium 100 mg capsule 200 mg PO DAILY #30 caps 03/09/22 ibuprofen 600 mg tablet 600 mg PO Q6H PRN Fever/Mild Pain 03/09/22 (1-3) #30 tabs oxycodone 5 mg tablet 5 mg PO Q4H PRN Pain, Moderate 03/09/22 (4-6) #30 tabs labetalol 100 mg tablet 200 mg PO BID #120 tabs 03/13/22 Allergies Allergy/AdvReac Type Severity Reaction Status Date / Time Sulfa (Sulfonamide Allergy Intermediate throat Verified 03/16/22 21:59 Antibiotics) swelling Review of Systems Review of Systems Narrative: Complete review of systems is negative other than as noted above. Patient History Medical History (Updated 03/16/22 @ 23:52 by Hector Claudio MD) Anxiety Asthma Depression Low vitamin D level Pre-eclampsia PTSD (post-traumatic stress disorder) Surgical History (Updated 03/09/22 @ 11:03 by Danielle Joseph MD) History of wisdom tooth extraction S/P Family History (Updated 11/01/21 @ 08:34 by Kylee Blunt RN) Mother Celiac disease Sister Kidney stones Grandfather Cancer Grandmother Cancer Grandfather Thyroid cancer Diabetes mellitus Unknown Cervical cancer Social History marital status: number of children: 0 household members: spouse lives independently: Yes housing: apartment pets and animals: Yes (Dogs, aware Toxoplasmosis) education level: college occupational status: employed current occupational exposures/hazards: No special swetha needs: No seatbelt use: always water heater temp set < 120 deg: Yes working smoke detector in home: Yes fire extinguisher in home: Yes carbon monox detector in home: Yes firearms in home: No do you feel safe at home: Yes Smoking Status: Never smoker second hand exposure: No alcohol intake: former substance use type: marijuana (occasional - anxiety) during the past year weight has: decreased > 10 lbs (15-20, stress) well-balanced diet: rarely or never daily servings fruits/ve-1 caffeine: No Type(s) of exercise: walking Smoking Status: Never smoker alcohol intake frequency: 0-2 drinks per day Substance Use Type: does not use Exam Narrative Exam Narrative: GENERAL: Alert, cooperative and in no distress. HEAD: Atraumatic. Normocephalic. EYES: Sclera are clear without icterus. Extraocular movements are full. ENT: No rhinorrhea. NECK: Supple. Full range of motion. CARDIOVASCULAR: Normal rate and rhythm without murmur gallop or rub. RESPIRATORY: Clear to auscultation. Breath sounds equal bilaterally. No wheezes, rales, or rhonchi. GASTROINTESTINAL: Abdomen soft, non-tender, nondistended. EXTREMITIES: No edema, full range of motion. No obvious trauma. BACK: Normal inspection, no CVA tenderness. NEURO: Nonfocal examination, normal speech, normal gait. Brisk 3+ reflexes symmetrical at the patella bilaterally. 1+ symmetrical reflexes at the Achilles bilaterally SKIN: No rash or erythema of visible areas PSYCH: Normally oriented. Normal range of affect. Appropriate behavior Initial Vital Signs Initial Vital Signs: Vital Signs Temperature 98.1 F 03/16/22 21:52 Pulse Rate 89 08/20/22 21:52 Respiratory Rate 20 03/16/22 21:52 Blood Pressure 152/84 H 03/16/22 21:52 Pulse Oximetry 97 03/16/22 21:52 Oxygen Delivery Method 03/16/22 21:52 Course Orders Ordered: ED Orders 03/16/22 22:14 Urine Culture Stat Urine Microscopic Stat 03/16/22 22:51 CBC Auto Diff [Complete Blood Count AUTO DIFF] Stat CMP [Comprehensive Metabolic Panel] Stat Vital Signs Vital signs: Vital Signs - 8 hr 03/16/22 21:52 Temperature 98.1 F Pulse Rate 89 Respiratory Rate 20 Blood Pressure 152/84 H Pulse Oximetry 97 Oxygen Delivery Method Room Air Medical Decision Making Lab Data Result diagrams: 03/16/22 23:00 03/16/22 23:00 Labs: Lab Results 03/16/22 03/16/22 03/16/22 Range/Units 22:14 23:00 23:00 WBC 7.5 (4.5-11.0) X10^3/uL RBC 3.64 L (4.0-5.2) X10^6/uL Hgb 10.7 L (12.0-16.0) g/dL Hct 31.1 L (36-46) % MCV 85.5 (80-100) fL MCH 29.4 (26-34) PG MCHC 34.3 (30-36) % RDW 13.1 (11.6-14.8) % Plt Count 317 (150-400) X10^3/uL Neut % (Auto) 70.0 (50-75) % Lymph % (Auto) 22.1 L (25-40) % [place] % (Auto) 6.0 (3-14) % Eos % (Auto) 1.5 L (2-4) % Baso % (Auto) 0.4 (0-2) % Neut # (Auto) 5200 (4762-1038) /uL Lymph # (Auto) 1700 (1151-8379) /uL [place] # (Auto) 400 (0-900) /uL Eos # (Auto) 100 (0-450) /uL Baso # (Auto) 0 (0-100) /uL Sodium 141 (137-145) mmol/L Potassium 3.5 (3.4-5.1) mmol/L Chloride 105 (98-107) mmol/L Carbon Dioxide 27 (22-32) mmol/L BUN 11 (7-17) mg/dL Creatinine 0.58 (0.52-1.04) mg/dL Estimated GFR > 60 (>60) mL/min BUN/Creatinine Ratio 19.0 (6-22) Glucose 102 H (70-100) mg/dL Calcium 9.5 (8.4-10.2) mg/dL Total Bilirubin 0.4 (0.2-1.3) mg/dL AST 19 (14-36) IU/L ALT 15 (<35) IU/L Alkaline Phosphatase 126 (38-126) U/L Total Protein 7.3 (6.3-8.2) g/dL Albumin 4.0 (3.5-5.0) g/dL Globulin 3.3 (1.7-4.1) g/dL Albumin/Globulin Ratio 1.2 (1.0-2.8) Urine RBC 0-1/hpf (0-5/HPF) Urine WBC 10-30/hpf H (0-5/HPF) Ur Squamous Epith Cells 1-5 /hpf (0-5/HPF) Urine Bacteria Few (2-10) H (None) Ur Culture Indicated? Specimen cultured Urine Dip Bedside Urine Glucose Negative Bedside Urine Bilirubin - Negative Bedside Urine Ketone - Negative Urine Specific [place] 1.010 Bedside Urine Occult Blood +++ Bedside Urine pH 7.0 Bedside Urine Protein - Negative Bedside Urine Urobilinogen - Negative Bedside Urine Nitrite - Negative Bedside Urine Leukocytes ++ 125 Esterase Point of care testing: Urine Dip Bedside Urine Glucose Negative Bedside Urine Bilirubin - Negative Bedside Urine Ketone - Negative Urine Specific [place] 1.010 Bedside Urine Occult Blood +++ Bedside Urine pH 7.0 Bedside Urine Protein - Negative Bedside Urine Urobilinogen - Negative Bedside Urine Nitrite - Negative Bedside Urine Leukocytes ++ 125 Esterase MDM Narrative Medical decision making narrative: This young woman appears normal. She is slightly hyperreflexic at the knees but otherwise completely benign ill on a physical examination other than her blood pressure. Laboratory data is reassuring. I discussed the case with Dr. Akilah Giraldo who recommends increase labetalol up to 200 mg3 times daily Discharge Plan Departure Patient Disposition: Home Clinical Impression: hypertension Activity Restrictions/Additional Instructions: Increase your labetalol from 200 twice daily up to 200 3 times daily. Follow-up right away for severe headache, vision change, difficulty walking, right-sided upper abdominal pain, repeated vomiting. Otherwise, follow up by phone with the clinic Friday. Prescriptions: No Action labetalol 100 mg tablet 200 mg PO BID Qty: 120 2RF hydrocortisone 1 % ointment 1 applic topical BID PRN (Reason: rash) Qty: 453.6 2RF terbinafine HCl 1 % cream 1 applic topical BID 14 Days Qty: 15 1RF Rx Instructions: Use for 2 weeks or until rash resolves. prenat.vits,alessandra,[id number] Tablet 1 tab PO DAILY (DME) double electric breast pump and supplies unknown See Rx Instructions Rx Instructions: As directed acetaminophen 325 mg Tablet 650 mg PO Q6H PRN (Reason: Fever/Mild Pain (1-3)) Qty: 30 0RF docusate sodium 100 mg Capsule 200 mg PO DAILY Qty: 30 0RF ibuprofen 600 mg Tablet 600 mg PO Q6H PRN (Reason: Fever/Mild Pain (1-3)) Qty: 30 0RF oxycodone 5 mg Tablet 5 mg PO Q4H PRN (Reason: Pain, Moderate (4-6)) Qty: 30 0RF Referrals: Danielle Joseph MD [Primary Care Provider] -
[2022-03-16 23:11] LABS: Add Manual Diff / Slide Review NO; Basophils Absolute Auto 0 /uL (0-100); Basophils Percent Auto 0.4 % (0-2); Eosinophils Absolute Auto 100 /uL (0-450); Eosinophils Percent Auto 1.5 % (2-4); Hematocrit 31.1 % (36-46); Hemoglobin 10.7 g/dL (12.0-16.0); Lymphocytes Absolute Auto 1700 /uL (1100-4500); Lymphocytes Percent Auto 22.1 % (25-40); Mean Corpuscular HGB Conc 34.3 % (30-36); Mean Corpuscular Hemoglobin 29.4 PG (26-34); Mean Corpuscular Volume 85.5 fL (80-100); Monocytes Absolute Auto 400 /uL (0-900); Neutrophils Absolute Auto 5200 /uL (1500-7000); Platelet Count 317 X10^3/uL (150-400); Red Blood Cell Count 3.64 X10^6/uL (4.0-5.2); Red Cell Distribution Width 13.1 % (11.6-14.8); White Blood Cell Count 7.5 X10^3/uL (4.5-11.0)
[2022-03-16 23:21] LABS: Alanine Aminotransferase 15 IU/L (<35); Albumin Globulin Ratio 1.2 (1.0-2.8); Alkaline Phosphatase 126 U/L (38-126); Aspartate Aminotransferase 19 IU/L (14-36); Bilirubin Total 0.4 mg/dL (0.2-1.3); Blood Urea Nitrogen 11 mg/dL (7-17); Calcium 9.5 mg/dL (8.4-10.2); Carbon Dioxide 27 mmol/L (22-32); Chloride 105 mmol/L (98-107); Estimated Glomerular Filt Rate > 60 mL/min (>60); Globulin 3.3 g/dL (1.7-4.1); Glucose 102 mg/dL (70-100); HEMOLYSIS < 15 (0-50); Potassium 3.5 mmol/L (3.4-5.1); Sodium 141 mmol/L (137-145); Total Protein 7.3 g/dL (6.3-8.2)
[2022-03-17 00:13] VITALS: BP 143/78; PULSE 70; RESP 17; O2SAT 98
== END 2022-03-17 00:16 | disposition home or self-care (01) ==
PROVIDERS: Emergency Provider Family Medicine Addiction Medicine; PCP Family Medicine
DX: O16.5 Unspecified maternal hypertension, complicating the puerperium (principal)
CPT/HCPCS: 36415; 80053; 81003; 81015; 85025; 87086; 99282; 99283

== ENCOUNTER → 2022-04-17 12:50 | Outpatient (CLI) | payer OTHER, SELFPAY | PROVIDERS: PCP Family Medicine; Visit Provider Family Medicine | DX: R35.0 Frequency of micturition (principal) | CPT/HCPCS: 87086 ==

== ENCOUNTER 2022-11-15 13:00 | Outpatient (RCR) | payer OTHER, SELFPAY ==
--- NOTE | 2022-09-06 22:43 | PT.OIE ---
Current Diagnoses Dyspareunia not due to a substance or known physiological condition (09/06/22) Other specified disorders of muscle (09/06/22) Other specified disorders of urethra (09/06/22) Stress incontinence (female) (male) (09/06/22) Past Medical History (Last Updated 08/15/22 @ 13:56 by Abimbola Taylor PA-C) Anxiety Asthma Depression Low vitamin D level Pre-eclampsia PTSD (post-traumatic stress disorder) Past Surgical History (Last Updated 08/15/22 @ 13:56 by Abimbola Taylor PA-C) History of wisdom tooth extraction S/P Visit Care Team Role Provider Type Danielle Joseph MD Attending Provider Physician Family Provider Primary Care Provider Referring Provider Specialty: Family Practice Address: [address] [place] [address], [facility] Email: [email or web address] Physical Therapy Initial Evaluation PT-OP-A Visit Information Start: 09/05/22 20:22 Freq: Status: Active Protocol: Document 09/06/22 10:00 AMB (Rec: 09/06/22 10:19 AMB [id number]) Out-Patient Physical Therapy Visit Information Visit Information Visit Type Initial Evaluation Visit Start Time 09:45 Visit Stop Time 10:30 Total Visit Minutes 45 Visit Number 1 PT-OP-B Current Condition Start: 09/05/22 20:22 Freq: Status: Active Protocol: Document 09/06/22 10:00 AMB (Rec: 09/06/22 10:19 AMB [id number]) Current Condition History of Current Condition Onset Date February 2022 Current Complaints dyspareunia History of Current Condition Taniya has had painful intercourse since the of her baby in February, she has been able to have intercourse only once, and has tried multiple times. Did try dilators, but then stopped due to feeling it wasn't really helping. Sharp pain (R) over scar. Painful intercourse. Has not been doing kegels. Urethral prolapse was just recently diagnosed by urology. Was put on estrogen which she reports she doesn't like much because it has increased vaginal secretions. Personal Factors Other Personal Factors That May Effect stress/anxiety, neck pain Therapy/Recovery PT-OP-C Subjective Start: 09/05/22 20:22 Freq: Status: Active Protocol: Document 09/06/22 15:05 AMB (Rec: 09/06/22 15:13 AMB [id number]) Patient Questionnaires Pelvic Pain and Urgency/Frequency Patient Symptom Scale Pelvic Pain Score 15 PT-OP-I Pelvic Floor Start: 09/05/22 20:22 Freq: Status: Active Protocol: Document 09/06/22 15:05 AMB (Rec: 09/06/22 15:13 AMB [id number]) Pelvic Floor Assessment Urine Pelvic Floor Surgery Yes: Urinary Symptoms Dribbling After Urination,Pain Leakage Size Small Leakage Cause Cough,Sneeze Bowel Other Bowel Symptoms denies constipation/straining Pelvic Clock Pelvic Clock 12-3 Tightness Pelvic Clock 3-6 Tightness Pelvic Clock 6-9 Tightness Pelvic Clock 9-12 Tightness Pelvic Clock Other Inserted finger to DIP with significant time spent. Pt with pain with palpation at most superficial musculature, could not palpate levator ani or obturators due to patient pain. Educated pt that was trying to palpate at perineum at 6 oclock, far away from urethra, but pt continued to have pain, so did not attempt further palpation. Prolapse Urethrocele Grade 1 Prolapse Comments unable to assess for rectocele /cystocele due to pt pain. Comments Pelvic Floor Comments Unable to assess pt strength due to pt tolerance of internal assessment PT-OP-T Assessment and Plan Start: 09/05/22 20:22 Freq: Status: Active Protocol: Document 09/06/22 09:45 AMB (Rec: 09/07/22 22:39 AMB [id number]) Physical Therapy Assessment Rehab Potential Rehabilitation Potential Good Evaluation Complexity Number of Personal Factors/Comorbidities 1-2 Number of Body Systems Impaired 1-2 Clinical Presentation at Evaluation Stable Impairments Impairments Pain Goals Two Impairment stress incontinence Short Term Goal (STG) Taniya will be independent with a HEP for her pelvic pain and incontinence. STG Duration 6 weeks Coal Pipeline Operator Goal (LTG) Taniya will be able to cough without leaking urine. LTG Duration 12 weeks One Impairment dyspareunia Short Term Goal (STG) Taniya will be able to insert an internal electrode for biofeedback with 3/10 pain or less. STG Duration 6 weeks Coal Pipeline Operator Goal (LTG) Taniya will engage in the intercourse of her choice with 3/10 pain or less. LTG Duration 12 weeks Assessment Summary Assessment Taniya attends physical therapy with dyspareunia since her 6 months ago. She was recently diagnosed with urethral prolapse. Upon examination she had significant pain at the introitus. Gentle pressure on the perineum reproduced the pain that she feels when she attempts to have penetrative intercourse. Discussed with the patient that I was unable to fully examine the pelvic floor muscles as the pain was too great to palpate deeper musculature. Did not palpate urethra, but did visualize. 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 Pt will benefit from physical therapy to progressively relax and stretch pelvic floor tissues. Then we could consider strengthening given pt's prolapse and stress incontinence symptoms. Physical Therapy Plan Frequency and Duration Frequency of Treatment 1x/Week Duration of treatment (weeks) 12 Plan of Care Start Date 09/06/22 Plan of Care End Date 11/29/22 Therapeutic Interventions Therapeutic Interventions Manual Therapy,Neuromuscular Re-education,Self-Care/Home Management,Therapeutic Activities,Therapeutic Exercises Modalities Biofeedback,Electric Stimulation Next Visit Focus/Plan Next Note Type Treatment Note Next Visit Plan Begin with hip opening stretches, relaxation techniques, progress to manual therapy
--- NOTE | 2022-09-06 22:45 | PT.OPPOC ---
Addendum entered and electronically signed by Katheryn Rand, PT 09/07/22 22:45: signature needed Original Note: Physical, Occupational & Speech Therapy At [facility] Current Diagnoses Dyspareunia not due to a substance or known physiological condition (09/06/22) Other specified disorders of muscle (09/06/22) Other specified disorders of urethra (09/06/22) Stress incontinence (female) (male) (09/06/22) Visit Care Team Role Provider Type Danielle Joseph MD Attending Provider Physician Family Provider Primary Care Provider Referring Provider Specialty: Family Practice Address: [address] [place] [address], [facility] Email: [email or web address] Plan Of Care PT-OP-T Assessment and Plan Start: 09/05/22 20:22 Freq: Status: Active Protocol: Document 09/06/22 09:45 AMB (Rec: 09/07/22 22:39 AMB [id number]) Physical Therapy Assessment Rehab Potential Rehabilitation Potential Good Evaluation Complexity Number of Personal Factors/Comorbidities 1-2 Number of Body Systems Impaired 1-2 Clinical Presentation at Evaluation Stable Impairments Impairments Pain Goals Two Impairment stress incontinence Short Term Goal (STG) Taniya will be independent with a HEP for her pelvic pain and incontinence. STG Duration 6 weeks Account Support Associate Goal (LTG) Taniya will be able to cough without leaking urine. LTG Duration 12 weeks One Impairment dyspareunia Short Term Goal (STG) Taniya will be able to insert an internal electrode for biofeedback with 3/10 pain or less. STG Duration 6 weeks Account Support Associate Goal (LTG) Taniya will engage in the intercourse of her choice with 3/10 pain or less. LTG Duration 12 weeks Assessment Summary Assessment Taniya attends physical therapy with dyspareunia since her 6 months ago. She was recently diagnosed with urethral prolapse. Upon examination she had significant pain at the introitus. Gentle pressure on the perineum reproduced the pain that she feels when she attempts to have penetrative intercourse. Discussed with the patient that I was unable to fully examine the pelvic floor muscles as the pain was too great to palpate deeper musculature. Did not palpate urethra, but did visualize. 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 Pt will benefit from physical therapy to progressively relax and stretch pelvic floor tissues. Then we could consider strengthening given pt's prolapse and stress incontinence symptoms. Physical Therapy Plan Frequency and Duration Frequency of Treatment 1x/Week Duration of treatment (weeks) 12 Plan of Care Start Date 09/06/22 Plan of Care End Date 11/29/22 Therapeutic Interventions Therapeutic Interventions Manual Therapy,Neuromuscular Re-education,Self-Care/Home Management,Therapeutic Activities,Therapeutic Exercises Modalities Biofeedback,Electric Stimulation Next Visit Focus/Plan Next Note Type Treatment Note Next Visit Plan Begin with hip opening stretches, relaxation techniques, progress to manual therapy Plan of Care Dates Plan of Care Start Date 09/06/22 Plan of Care End Date 11/29/22 Electronically Signed by: Katheryn Rand, PT 09/07/22 [id number] If you are in agreement with this Plan of Care, please return a signed and dated copy. I have reviewed this Plan of Care and certify that the skilled therapy services above are required to meet the patient?s needs. Physician Signature Date Printed Name and Credentials Clinical Instructor Signature Printed Name and Credentials
--- NOTE | 2022-09-09 16:08 | PT.OTN ---
Current Diagnoses Dyspareunia not due to a substance or known physiological condition (09/09/22) Other specified disorders of muscle (09/09/22) Other specified disorders of urethra (09/09/22) Stress incontinence (female) (male) (09/09/22) Physical Therapy Treatment Note PT-OP-A Visit Information Start: 09/05/22 20:22 Freq: Status: Active Protocol: Document 09/09/22 14:31 AMB (Rec: 09/09/22 16:08 AMB [id number]) Out-Patient Physical Therapy Visit Information Visit Information Visit Type Treatment Note Visit Start Time 14:30 Visit Stop Time 15:15 Total Visit Minutes 45 Visit Number 2 PT-OP-B Current Condition Start: 09/05/22 20:22 Freq: Status: Active Protocol: Document 09/06/22 10:00 AMB (Rec: 09/06/22 10:19 AMB [id number]) Current Condition History of Current Condition Onset Date February 2022 Current Complaints dyspareunia History of Current Condition Taniya has had painful intercourse since the of her baby in February, she has been able to have intercourse only once, and has tried multiple times. Did try dilators, but then stopped due to feeling it wasn't really helping. Sharp pain (R) over scar. Painful intercourse. Has not been doing kegels. Urethral prolapse was just recently diagnosed by urology. Was put on estrogen which she reports she doesn't like much because it has increased vaginal secretions. Personal Factors Other Personal Factors That May Effect stress/anxiety, neck pain Therapy/Recovery PT-OP-C Subjective Start: 09/05/22 20:22 Freq: Status: Active Protocol: Document 09/09/22 14:31 AMB (Rec: 09/09/22 16:08 AMB [id number]) OP-PT Subjective Patient Comments Patient Comments Describes pain as tightness, didn't have too much pain after eval. PT-OP-I Pelvic Floor Start: 09/05/22 20:22 Freq: Status: Active Protocol: Document 09/06/22 15:05 AMB (Rec: 09/06/22 15:13 AMB [id number]) Pelvic Floor Assessment Urine Pelvic Floor Surgery Yes: Urinary Symptoms Dribbling After Urination,Pain Leakage Size Small Leakage Cause Cough,Sneeze Bowel Other Bowel Symptoms denies constipation/straining Pelvic Clock Pelvic Clock 12-3 Tightness Pelvic Clock 3-6 Tightness Pelvic Clock 6-9 Tightness Pelvic Clock 9-12 Tightness Pelvic Clock Other Inserted finger to DIP with significant time spent. Pt with pain with palpation at most superficial musculature, could not palpate levator ani or obturators due to patient pain. Educated pt that was trying to palpate at perineum at 6 oclock, far away from urethra, but pt continued to have pain, so did not attempt further palpation. Prolapse Urethrocele Grade 1 Prolapse Comments unable to assess for rectocele /cystocele due to pt pain. Comments Pelvic Floor Comments Unable to assess pt strength due to pt tolerance of internal assessment PT-OP-Q Treatments Start: 09/05/22 20:22 Freq: Status: Active Protocol: Document 09/09/22 14:31 AMB (Rec: 09/09/22 16:08 AMB [id number]) Therapeutic Exercises Supine Exercises piriformis stretch Reps/Minutes 30x2 butterfly- legs on wall Reps/Minutes 30x2 Other Exercises cat cow Reps/Minutes 20 Manual Therapy Treatment Soft Tissue Mobilization internal Comments started with palpation of perineum and then was able to to progress to more TrP release at levator, with most pain anteriorly, very tight on the L. PT-OP-T Assessment and Plan Start: 09/05/22 20:22 Freq: Status: Active Protocol: Document 09/09/22 14:31 AMB (Rec: 09/09/22 16:08 AMB [id number]) Physical Therapy Assessment Goals Two Impairment stress incontinence Short Term Goal (STG) Taniya will be independent with a HEP for her pelvic pain and incontinence. STG Duration 6 weeks Alf Goal (LTG) Taniya will be able to cough without leaking urine. LTG Duration 12 weeks One Impairment dyspareunia Short Term Goal (STG) Taniya will be able to insert an internal electrode for biofeedback with 3/10 pain or less. STG Duration 6 weeks Alf Goal (LTG) Taniya will engage in the intercourse of her choice with 3/10 pain or less. LTG Duration 12 weeks Assessment Summary Assessment Taniya did well with hip stretches. Tolerated more internal release but continues to be painful, worked more on levator today, stinging pain with palaption of anterior, Very weak with 1/5 pelvic floor strength. Physical Therapy Plan Frequency and Duration Frequency of Treatment 1x/Week Duration of treatment (weeks) 12 Plan of Care Start Date 09/06/22 Plan of Care End Date 11/29/22 Therapeutic Interventions Therapeutic Interventions Manual Therapy,Neuromuscular Re-education,Self-Care/Home Management,Therapeutic Activities,Therapeutic Exercises Modalities Biofeedback,Electric Stimulation Next Visit Focus/Plan Next Note Type Treatment Note Next Visit Plan Begin with hip opening stretches, relaxation techniques, progress to manual therapy
--- NOTE | 2022-09-27 16:01 | PT.OTN ---
Current Diagnoses Dyspareunia not due to a substance or known physiological condition (09/27/22) Other specified disorders of muscle (09/27/22) Other specified disorders of urethra (09/27/22) Stress incontinence (female) (male) (09/27/22) Physical Therapy Treatment Note PT-OP-A Visit Information Start: 09/05/22 20:22 Freq: Status: Active Protocol: Document 09/27/22 11:21 AMB (Rec: 09/27/22 11:58 AMB [id number]) Out-Patient Physical Therapy Visit Information Visit Information Visit Type Treatment Note Visit Start Time 11:15 Visit Stop Time 12:00 Total Visit Minutes 45 Visit Number 3 PT-OP-B Current Condition Start: 09/05/22 20:22 Freq: Status: Active Protocol: Document 09/06/22 10:00 AMB (Rec: 09/06/22 10:19 AMB [id number]) Current Condition History of Current Condition Onset Date February 2022 Current Complaints dyspareunia History of Current Condition Taniya has had painful intercourse since the of her baby in February, she has been able to have intercourse only once, and has tried multiple times. Did try dilators, but then stopped due to feeling it wasn't really helping. Sharp pain (R) over scar. Painful intercourse. Has not been doing kegels. Urethral prolapse was just recently diagnosed by urology. Was put on estrogen which she reports she doesn't like much because it has increased vaginal secretions. Personal Factors Other Personal Factors That May Effect stress/anxiety, neck pain Therapy/Recovery PT-OP-C Subjective Start: 09/05/22 20:22 Freq: Status: Active Protocol: Document 09/27/22 11:21 AMB (Rec: 09/27/22 11:58 AMB [id number]) OP-PT Subjective Patient Comments Patient Comments Did have pain for 30-60 minutes after last tx. PT-OP-I Pelvic Floor Start: 09/05/22 20:22 Freq: Status: Active Protocol: Document 09/06/22 15:05 AMB (Rec: 09/06/22 15:13 AMB [id number]) Pelvic Floor Assessment Urine Pelvic Floor Surgery Yes: Urinary Symptoms Dribbling After Urination,Pain Leakage Size Small Leakage Cause Cough,Sneeze Bowel Other Bowel Symptoms denies constipation/straining Pelvic Clock Pelvic Clock 12-3 Tightness Pelvic Clock 3-6 Tightness Pelvic Clock 6-9 Tightness Pelvic Clock 9-12 Tightness Pelvic Clock Other Inserted finger to DIP with significant time spent. Pt with pain with palpation at most superficial musculature, could not palpate levator ani or obturators due to patient pain. Educated pt that was trying to palpate at perineum at 6 oclock, far away from urethra, but pt continued to have pain, so did not attempt further palpation. Prolapse Urethrocele Grade 1 Prolapse Comments unable to assess for rectocele /cystocele due to pt pain. Comments Pelvic Floor Comments Unable to assess pt strength due to pt tolerance of internal assessment PT-OP-Q Treatments Start: 09/05/22 20:22 Freq: Status: Active Protocol: Document 09/27/22 11:21 AMB (Rec: 09/27/22 11:58 AMB [id number]) Therapeutic Exercises Supine Exercises piriformis stretch Reps/Minutes 30x2 butterfly- legs on wall Reps/Minutes 30x2 Standing Exercises hamstring against wall Reps/Minutes 30x2 Other Exercises quadruped trunk sidebending Reps/Minutes 10 cat cow Reps/Minutes 20 Manual Therapy Treatment Soft Tissue Mobilization internal Comments started with palpation of perineum and then was able to to progress to more TrP release at levator, tightness L>R PT-OP-T Assessment and Plan Start: 09/05/22 20:22 Freq: Status: Active Protocol: Document 09/27/22 11:21 AMB (Rec: 09/27/22 11:58 AMB [id number]) Physical Therapy Assessment Goals Two Impairment stress incontinence Short Term Goal (STG) Taniya will be independent with a HEP for her pelvic pain and incontinence. STG Duration 6 weeks Furniture Duster Goal (LTG) Taniya will be able to cough without leaking urine. LTG Duration 12 weeks One Impairment dyspareunia Short Term Goal (STG) Taniya will be able to insert an internal electrode for biofeedback with 3/10 pain or less. STG Duration 6 weeks Mcfp Goal (LTG) Taniya will engage in the intercourse of her choice with 3/10 pain or less. LTG Duration 12 weeks Assessment Summary Assessment Taniya continues to have pain with internal palpation, did tolerate more TrP release today. continued to encourage in regular stretching, progressed with active hamstring stretch against wall . Physical Therapy Plan Frequency and Duration Frequency of Treatment 1x/Week Duration of treatment (weeks) 12 Plan of Care Start Date 09/06/22 Plan of Care End Date 11/29/22 Therapeutic Interventions Therapeutic Interventions Manual Therapy,Neuromuscular Re-education,Self-Care/Home Management,Therapeutic Activities,Therapeutic Exercises Modalities Biofeedback,Electric Stimulation Next Visit Focus/Plan Next Note Type Treatment Note Next Visit Plan Begin with hip opening stretches, relaxation techniques, progress to manual therapy
--- NOTE | 2022-10-09 13:00 | PT.OTN ---
Current Diagnoses Dyspareunia not due to a substance or known physiological condition (10/09/22) Other specified disorders of muscle (10/09/22) Other specified disorders of urethra (10/09/22) Stress incontinence (female) (male) (10/09/22) Physical Therapy Treatment Note PT-OP-A Visit Information Start: 09/05/22 20:22 Freq: Status: Active Protocol: Document 10/09/22 08:18 AMB (Rec: 10/09/22 09:02 AMB [id number]) Out-Patient Physical Therapy Visit Information Visit Information Visit Type Treatment Note Visit Start Time 08:15 Visit Stop Time 09:00 Total Visit Minutes 45 Visit Number 4 PT-OP-B Current Condition Start: 09/05/22 20:22 Freq: Status: Active Protocol: Document 09/06/22 10:00 AMB (Rec: 09/06/22 10:19 AMB [id number]) Current Condition History of Current Condition Onset Date February 2022 Current Complaints dyspareunia History of Current Condition Taniya has had painful intercourse since the of her baby in February, she has been able to have intercourse only once, and has tried multiple times. Did try dilators, but then stopped due to feeling it wasn't really helping. Sharp pain (R) over scar. Painful intercourse. Has not been doing kegels. Urethral prolapse was just recently diagnosed by urology. Was put on estrogen which she reports she doesn't like much because it has increased vaginal secretions. Personal Factors Other Personal Factors That May Effect stress/anxiety, neck pain Therapy/Recovery PT-OP-C Subjective Start: 09/05/22 20:22 Freq: Status: Active Protocol: Document 10/09/22 08:18 AMB (Rec: 10/09/22 09:02 AMB [id number]) OP-PT Subjective Patient Comments Patient Comments Pt reports she is doing some of the stretches and that is going ok. Dribbling urine is the same. PT-OP-I Pelvic Floor Start: 09/05/22 20:22 Freq: Status: Active Protocol: Document 09/06/22 15:05 AMB (Rec: 09/06/22 15:13 AMB [id number]) Pelvic Floor Assessment Urine Pelvic Floor Surgery Yes: Urinary Symptoms Dribbling After Urination,Pain Leakage Size Small Leakage Cause Cough,Sneeze Bowel Other Bowel Symptoms denies constipation/straining Pelvic Clock Pelvic Clock 12-3 Tightness Pelvic Clock 3-6 Tightness Pelvic Clock 6-9 Tightness Pelvic Clock 9-12 Tightness Pelvic Clock Other Inserted finger to DIP with significant time spent. Pt with pain with palpation at most superficial musculature, could not palpate levator ani or obturators due to patient pain. Educated pt that was trying to palpate at perineum at 6 oclock, far away from urethra, but pt continued to have pain, so did not attempt further palpation. Prolapse Urethrocele Grade 1 Prolapse Comments unable to assess for rectocele /cystocele due to pt pain. Comments Pelvic Floor Comments Unable to assess pt strength due to pt tolerance of internal assessment PT-OP-Q Treatments Start: 09/05/22 20:22 Freq: Status: Active Protocol: Document 10/09/22 08:18 AMB (Rec: 10/09/22 09:02 AMB [id number]) Therapeutic Exercises Supine Exercises pelvic floor Supine Exercise Name iron Comments gentle contraction and gentle softening/letting go with sit to stand Manual Therapy Treatment Soft Tissue Mobilization internal Comments Able to tolerate more internal TrP release, turning finger still quite painfull.Trp release R and L levator. PT-OP-T Assessment and Plan Start: 09/05/22 20:22 Freq: Status: Active Protocol: Document 10/09/22 08:18 AMB (Rec: 10/09/22 09:02 AMB [id number]) Physical Therapy Assessment Goals Two Impairment stress incontinence Short Term Goal (STG) Taniya will be independent with a HEP for her pelvic pain and incontinence. STG Duration 6 weeks Nursing Home Goal (LTG) Taniya will be able to cough without leaking urine. LTG Duration 12 weeks One Impairment dyspareunia Short Term Goal (STG) Taniya will be able to insert an internal electrode for biofeedback with 3/10 pain or less. STG Duration 6 weeks Lens Assistant Goal (LTG) Taniya will engage in the intercourse of her choice with 3/10 pain or less. LTG Duration 12 weeks Assessment Summary Assessment Taniya is tolerating more internal work and deeper pressure, not as much pain at the introitus now, more deeper . Encouraged in gentle strengthening with focus on relaxation so that patient can move from sit to stand after toileting to try to work on dribbling after urination. Physical Therapy Plan Frequency and Duration Frequency of Treatment 1x/Week Duration of treatment (weeks) 12 Plan of Care Start Date 09/06/22 Plan of Care End Date 11/29/22 Therapeutic Interventions Therapeutic Interventions Manual Therapy,Neuromuscular Re-education,Self-Care/Home Management,Therapeutic Activities,Therapeutic Exercises Modalities Biofeedback,Electric Stimulation Next Visit Focus/Plan Next Note Type Treatment Note Next Visit Plan Begin with hip opening stretches, relaxation techniques, progress to manual therapy
--- NOTE | 2022-10-23 08:26 | PT.OTN ---
Current Diagnoses Dyspareunia not due to a substance or known physiological condition (10/23/22) Other specified disorders of muscle (10/23/22) Other specified disorders of urethra (10/23/22) Stress incontinence (female) (male) (10/23/22) Physical Therapy Treatment Note PT-OP-A Visit Information Start: 09/05/22 20:22 Freq: Status: Active Protocol: Document 10/23/22 07:34 AMB (Rec: 10/23/22 08:25 AMB [id number]) Out-Patient Physical Therapy Visit Information Visit Information Visit Type Treatment Note Visit Start Time 07:30 Visit Stop Time 08:15 Total Visit Minutes 45 Visit Number 5 PT-OP-B Current Condition Start: 09/05/22 20:22 Freq: Status: Active Protocol: Document 09/06/22 10:00 AMB (Rec: 09/06/22 10:19 AMB [id number]) Current Condition History of Current Condition Onset Date February 2022 Current Complaints dyspareunia History of Current Condition Taniya has had painful intercourse since the of her baby in February, she has been able to have intercourse only once, and has tried multiple times. Did try dilators, but then stopped due to feeling it wasn't really helping. Sharp pain (R) over scar. Painful intercourse. Has not been doing kegels. Urethral prolapse was just recently diagnosed by urology. Was put on estrogen which she reports she doesn't like much because it has increased vaginal secretions. Personal Factors Other Personal Factors That May Effect stress/anxiety, neck pain Therapy/Recovery PT-OP-C Subjective Start: 09/05/22 20:22 Freq: Status: Active Protocol: Document 10/23/22 07:34 AMB (Rec: 10/23/22 08:25 AMB [id number]) OP-PT Subjective Patient Comments Patient Comments 45-60 minutes of pain after PT last time PT-OP-I Pelvic Floor Start: 09/05/22 20:22 Freq: Status: Active Protocol: Document 09/06/22 15:05 AMB (Rec: 09/06/22 15:13 AMB [id number]) Pelvic Floor Assessment Urine Pelvic Floor Surgery Yes: Urinary Symptoms Dribbling After Urination,Pain Leakage Size Small Leakage Cause Cough,Sneeze Bowel Other Bowel Symptoms denies constipation/straining Pelvic Clock Pelvic Clock 12-3 Tightness Pelvic Clock 3-6 Tightness Pelvic Clock 6-9 Tightness Pelvic Clock 9-12 Tightness Pelvic Clock Other Inserted finger to DIP with significant time spent. Pt with pain with palpation at most superficial musculature, could not palpate levator ani or obturators due to patient pain. Educated pt that was trying to palpate at perineum at 6 oclock, far away from urethra, but pt continued to have pain, so did not attempt further palpation. Prolapse Urethrocele Grade 1 Prolapse Comments unable to assess for rectocele /cystocele due to pt pain. Comments Pelvic Floor Comments Unable to assess pt strength due to pt tolerance of internal assessment PT-OP-Q Treatments Start: 09/05/22 20:22 Freq: Status: Active Protocol: Document 10/23/22 07:34 AMB (Rec: 10/23/22 08:25 AMB [id number]) Neuro Re-Education Treatment Other Activities sEMG Details for pelvic floor relaxation Comments started at 3 and eventually got down to 1 PT-OP-T Assessment and Plan Start: 09/05/22 20:22 Freq: Status: Active Protocol: Document 10/23/22 07:34 AMB (Rec: 10/23/22 08:25 AMB [id number]) Physical Therapy Assessment Goals Two Impairment stress incontinence Short Term Goal (STG) Taniya will be independent with a HEP for her pelvic pain and incontinence. STG Duration 6 weeks Senior Living Goal (LTG) Taniya will be able to cough without leaking urine. LTG Duration 12 weeks One Impairment dyspareunia Short Term Goal (STG) Taniya will be able to insert an internal electrode for biofeedback with 3/10 pain or less. STG Duration 6 weeks Photograph Editor Goal (LTG) Taniya will engage in the intercourse of her choice with 3/10 pain or less. LTG Duration 12 weeks Assessment Summary Assessment Taniya declined internal work today, has some stomach upset. sEMG started at 3uV and with working on softening and lengthening pelvic floor cues to get down to an average of 1 . Physical Therapy Plan Frequency and Duration Frequency of Treatment 1x/Week Duration of treatment (weeks) 12 Plan of Care Start Date 09/06/22 Plan of Care End Date 11/29/22 Therapeutic Interventions Therapeutic Interventions Manual Therapy,Neuromuscular Re-education,Self-Care/Home Management,Therapeutic Activities,Therapeutic Exercises Modalities Biofeedback,Electric Stimulation Next Visit Focus/Plan Next Note Type Treatment Note Next Visit Plan Begin with hip opening stretches, relaxation techniques, progress to manual therapy
--- NOTE | 2022-10-29 13:50 | PT.OTN ---
Current Diagnoses Dyspareunia not due to a substance or known physiological condition (10/29/22) Other specified disorders of muscle (10/29/22) Other specified disorders of urethra (10/29/22) Stress incontinence (female) (male) (10/29/22) Physical Therapy Treatment Note PT-OP-A Visit Information Start: 09/05/22 20:22 Freq: Status: Active Protocol: Document 10/29/22 13:07 AMB (Rec: 10/29/22 13:50 AMB [id number]) Out-Patient Physical Therapy Visit Information Visit Information Visit Type Treatment Note Visit Start Time 13:00 Visit Stop Time 13:45 Total Visit Minutes 45 Visit Number 6 PT-OP-B Current Condition Start: 09/05/22 20:22 Freq: Status: Active Protocol: Document 09/06/22 10:00 AMB (Rec: 09/06/22 10:19 AMB [id number]) Current Condition History of Current Condition Onset Date February 2022 Current Complaints dyspareunia History of Current Condition Taniya has had painful intercourse since the of her baby in February, she has been able to have intercourse only once, and has tried multiple times. Did try dilators, but then stopped due to feeling it wasn't really helping. Sharp pain (R) over scar. Painful intercourse. Has not been doing kegels. Urethral prolapse was just recently diagnosed by urology. Was put on estrogen which she reports she doesn't like much because it has increased vaginal secretions. Personal Factors Other Personal Factors That May Effect stress/anxiety, neck pain Therapy/Recovery PT-OP-C Subjective Start: 09/05/22 20:22 Freq: Status: Active Protocol: Document 10/29/22 13:07 AMB (Rec: 10/29/22 13:50 AMB [id number]) OP-PT Subjective Patient Comments Patient Comments Pt reports had sex and was able to tolerate it. Afterwards urethral pain was significant. PT-OP-I Pelvic Floor Start: 09/05/22 20:22 Freq: Status: Active Protocol: Document 09/06/22 15:05 AMB (Rec: 09/06/22 15:13 AMB [id number]) Pelvic Floor Assessment Urine Pelvic Floor Surgery Yes: Urinary Symptoms Dribbling After Urination,Pain Leakage Size Small Leakage Cause Cough,Sneeze Bowel Other Bowel Symptoms denies constipation/straining Pelvic Clock Pelvic Clock 12-3 Tightness Pelvic Clock 3-6 Tightness Pelvic Clock 6-9 Tightness Pelvic Clock 9-12 Tightness Pelvic Clock Other Inserted finger to DIP with significant time spent. Pt with pain with palpation at most superficial musculature, could not palpate levator ani or obturators due to patient pain. Educated pt that was trying to palpate at perineum at 6 oclock, far away from urethra, but pt continued to have pain, so did not attempt further palpation. Prolapse Urethrocele Grade 1 Prolapse Comments unable to assess for rectocele /cystocele due to pt pain. Comments Pelvic Floor Comments Unable to assess pt strength due to pt tolerance of internal assessment PT-OP-Q Treatments Start: 09/05/22 20:22 Freq: Status: Active Protocol: Document 10/29/22 13:07 AMB (Rec: 10/29/22 13:50 AMB [id number]) Therapeutic Exercises Supine Exercises pelvic floor Supine Exercise Name kegel 10 on 20 off Comments NMES PT-OP-T Assessment and Plan Start: 09/05/22 20:22 Freq: Status: Active Protocol: Document 10/29/22 13:07 AMB (Rec: 10/29/22 13:50 AMB [id number]) Physical Therapy Assessment Goals Two Impairment stress incontinence Short Term Goal (STG) Taniya will be independent with a HEP for her pelvic pain and incontinence. STG Duration 6 weeks Relief Charge Nurse Goal (LTG) Taniya will be able to cough without leaking urine. LTG Duration 12 weeks One Impairment dyspareunia Short Term Goal (STG) Taniya will be able to insert an internal electrode for biofeedback with 3/10 pain or less. STG Duration 6 weeks [facility] Goal (LTG) Taniya will engage in the intercourse of her choice with 3/10 pain or less. LTG Duration 12 weeks Assessment Summary Assessment Taniya fatigued easily today. Encouraged in home pelvic floor exercises with significant focus on relaxing pelvic floor between sets. Physical Therapy Plan Frequency and Duration Frequency of Treatment 1x/Week Duration of treatment (weeks) 12 Plan of Care Start Date 09/06/22 Plan of Care End Date 11/29/22 Therapeutic Interventions Therapeutic Interventions Manual Therapy,Neuromuscular Re-education,Self-Care/Home Management,Therapeutic Activities,Therapeutic Exercises Modalities Biofeedback,Electric Stimulation Next Visit Focus/Plan Next Note Type Treatment Note Next Visit Plan Begin with hip opening stretches, relaxation techniques, progress to manual therapy
--- NOTE | 2022-11-01 13:58 | PT.OTN ---
Current Diagnoses Dyspareunia not due to a substance or known physiological condition (11/01/22) Other specified disorders of muscle (11/01/22) Other specified disorders of urethra (11/01/22) Stress incontinence (female) (male) (11/01/22) Physical Therapy Treatment Note PT-OP-A Visit Information Start: 09/05/22 20:22 Freq: Status: Active Protocol: Document 11/01/22 13:09 AMB (Rec: 11/01/22 13:58 AMB [id number]) Out-Patient Physical Therapy Visit Information Visit Information Visit Type Treatment Note Visit Start Time 13:00 Visit Stop Time 13:45 Total Visit Minutes 45 Visit Number 7 PT-OP-B Current Condition Start: 09/05/22 20:22 Freq: Status: Active Protocol: Document 09/06/22 10:00 AMB (Rec: 09/06/22 10:19 AMB [id number]) Current Condition History of Current Condition Onset Date February 2022 Current Complaints dyspareunia History of Current Condition Taniya has had painful intercourse since the of her baby in February, she has been able to have intercourse only once, and has tried multiple times. Did try dilators, but then stopped due to feeling it wasn't really helping. Sharp pain (R) over scar. Painful intercourse. Has not been doing kegels. Urethral prolapse was just recently diagnosed by urology. Was put on estrogen which she reports she doesn't like much because it has increased vaginal secretions. Personal Factors Other Personal Factors That May Effect stress/anxiety, neck pain Therapy/Recovery PT-OP-C Subjective Start: 09/05/22 20:22 Freq: Status: Active Protocol: Document 11/01/22 13:09 AMB (Rec: 11/01/22 13:58 AMB [id number]) OP-PT Subjective Patient Comments Patient Reported Progress Same PT-OP-I Pelvic Floor Start: 09/05/22 20:22 Freq: Status: Active Protocol: Document 09/06/22 15:05 AMB (Rec: 09/06/22 15:13 AMB [id number]) Pelvic Floor Assessment Urine Pelvic Floor Surgery Yes: Urinary Symptoms Dribbling After Urination,Pain Leakage Size Small Leakage Cause Cough,Sneeze Bowel Other Bowel Symptoms denies constipation/straining Pelvic Clock Pelvic Clock 12-3 Tightness Pelvic Clock 3-6 Tightness Pelvic Clock 6-9 Tightness Pelvic Clock 9-12 Tightness Pelvic Clock Other Inserted finger to DIP with significant time spent. Pt with pain with palpation at most superficial musculature, could not palpate levator ani or obturators due to patient pain. Educated pt that was trying to palpate at perineum at 6 oclock, far away from urethra, but pt continued to have pain, so did not attempt further palpation. Prolapse Urethrocele Grade 1 Prolapse Comments unable to assess for rectocele /cystocele due to pt pain. Comments Pelvic Floor Comments Unable to assess pt strength due to pt tolerance of internal assessment PT-OP-Q Treatments Start: 09/05/22 20:22 Freq: Status: Active Protocol: Document 11/01/22 13:09 AMB (Rec: 11/01/22 13:58 AMB [id number]) Manual Therapy Treatment Soft Tissue Mobilization internal Comments Able to tolerate more internal TrP release, was able to work on obterator internus today. Continued to encourage relaxation/breathing techniques. PT-OP-T Assessment and Plan Start: 09/05/22 20:22 Freq: Status: Active Protocol: Document 11/01/22 13:09 AMB (Rec: 11/01/22 13:58 AMB [id number]) Physical Therapy Assessment Goals Two Impairment stress incontinence Short Term Goal (STG) Taniya will be independent with a HEP for her pelvic pain and incontinence. STG Duration 6 weeks Half-Way Goal (LTG) Taniya will be able to cough without leaking urine. LTG Duration 12 weeks One Impairment dyspareunia Short Term Goal (STG) Taniya will be able to insert an internal electrode for biofeedback with 3/10 pain or less. STG Duration 6 weeks Half-Way Goal (LTG) Taniya will engage in the intercourse of her choice with 3/10 pain or less. PROGRESS MADE: LTG Duration 12 weeks Assessment Summary Assessment Taniya tolerated more internal releases today. Continues to have pain with internal release, but less intense than at beginning of therapy. Pt given small dilator today. Physical Therapy Plan Frequency and Duration Frequency of Treatment 2x/Week Duration of treatment (weeks) 10 Plan of Care Start Date 11/01/22 Plan of Care End Date 01/10/23 Therapeutic Interventions Therapeutic Interventions Manual Therapy,Neuromuscular Re-education,Self-Care/Home Management,Therapeutic Activities,Therapeutic Exercises Modalities Biofeedback,Electric Stimulation Next Visit Focus/Plan Next Note Type Treatment Note Next Visit Plan Begin with hip opening stretches, relaxation techniques, progress to manual therapy
--- NOTE | 2022-11-01 13:58 | PT.OPPOC ---
Physical, Occupational & Speech Therapy At [facility] Current Diagnoses Dyspareunia not due to a substance or known physiological condition (11/01/22) Other specified disorders of muscle (11/01/22) Other specified disorders of urethra (11/01/22) Stress incontinence (female) (male) (11/01/22) Visit Care Team Role Provider Type Danielle Joseph MD Attending Provider Physician Family Provider Primary Care Provider Referring Provider Specialty: Family Practice Address: [address] [place] [address] Email: [email or web address] Plan Of Care PT-OP-T Assessment and Plan Start: 09/05/22 20:22 Freq: Status: Active Protocol: Document 11/01/22 13:09 AMB (Rec: 11/01/22 13:58 AMB [id number]) Physical Therapy Assessment Goals Two Impairment stress incontinence Short Term Goal (STG) Taniya will be independent with a HEP for her pelvic pain and incontinence. STG Duration 6 weeks Channeling Machine Operator Goal (LTG) Taniya will be able to cough without leaking urine. LTG Duration 12 weeks One Impairment dyspareunia Short Term Goal (STG) Taniya will be able to insert an internal electrode for biofeedback with 3/10 pain or less. STG Duration 6 weeks Channeling Machine Operator Goal (LTG) Taniya will engage in the intercourse of her choice with 3/10 pain or less. PROGRESS MADE: LTG Duration 12 weeks Assessment Summary Assessment Taniya tolerated more internal releases today. Continues to have pain with internal release, but less intense than at beginning of therapy. Pt given small dilator today. Physical Therapy Plan Frequency and Duration Frequency of Treatment 2x/Week Duration of treatment (weeks) 10 Plan of Care Start Date 11/01/22 Plan of Care End Date 01/10/23 Therapeutic Interventions Therapeutic Interventions Manual Therapy,Neuromuscular Re-education,Self-Care/Home Management,Therapeutic Activities,Therapeutic Exercises Modalities Biofeedback,Electric Stimulation Next Visit Focus/Plan Next Note Type Treatment Note Next Visit Plan Begin with hip opening stretches, relaxation techniques, progress to manual therapy Plan of Care Dates Plan of Care Start Date 11/01/22 Plan of Care End Date 01/10/23 Electronically Signed by: Katheryn Rand, PT 11/01/22 0564 If you are in agreement with this Plan of Care, please return a signed and dated copy. I have reviewed this Plan of Care and certify that the skilled therapy services above are required to meet the patient?s needs. Physician Signature Date Printed Name and Credentials Clinical Instructor Signature Printed Name and Credentials
--- NOTE | 2022-11-04 14:52 | PT.OTN ---
Current Diagnoses Dyspareunia not due to a substance or known physiological condition (11/04/22) Other specified disorders of muscle (11/04/22) Other specified disorders of urethra (11/04/22) Stress incontinence (female) (male) (11/04/22) Physical Therapy Treatment Note PT-OP-A Visit Information Start: 09/05/22 20:22 Freq: Status: Active Protocol: Document 11/04/22 13:49 AMB (Rec: 11/04/22 14:52 AMB [id number]) Out-Patient Physical Therapy Visit Information Visit Information Visit Type Treatment Note Visit Start Time 13:45 Visit Stop Time 14:30 Total Visit Minutes 45 Visit Number 8 PT-OP-B Current Condition Start: 09/05/22 20:22 Freq: Status: Active Protocol: Document 09/06/22 10:00 AMB (Rec: 09/06/22 10:19 AMB [id number]) Current Condition History of Current Condition Onset Date February 2022 Current Complaints dyspareunia History of Current Condition Taniya has had painful intercourse since the of her baby in February, she has been able to have intercourse only once, and has tried multiple times. Did try dilators, but then stopped due to feeling it wasn't really helping. Sharp pain (R) over scar. Painful intercourse. Has not been doing kegels. Urethral prolapse was just recently diagnosed by urology. Was put on estrogen which she reports she doesn't like much because it has increased vaginal secretions. Personal Factors Other Personal Factors That May Effect stress/anxiety, neck pain Therapy/Recovery PT-OP-C Subjective Start: 09/05/22 20:22 Freq: Status: Active Protocol: Document 11/04/22 13:49 AMB (Rec: 11/04/22 14:52 AMB [id number]) OP-PT Subjective Patient Comments Patient Comments Sore on Friday for about an hour after PT. PT-OP-I Pelvic Floor Start: 09/05/22 20:22 Freq: Status: Active Protocol: Document 09/06/22 15:05 AMB (Rec: 09/06/22 15:13 AMB [id number]) Pelvic Floor Assessment Urine Pelvic Floor Surgery Yes: Urinary Symptoms Dribbling After Urination,Pain Leakage Size Small Leakage Cause Cough,Sneeze Bowel Other Bowel Symptoms denies constipation/straining Pelvic Clock Pelvic Clock 12-3 Tightness Pelvic Clock 3-6 Tightness Pelvic Clock 6-9 Tightness Pelvic Clock 9-12 Tightness Pelvic Clock Other Inserted finger to DIP with significant time spent. Pt with pain with palpation at most superficial musculature, could not palpate levator ani or obturators due to patient pain. Educated pt that was trying to palpate at perineum at 6 oclock, far away from urethra, but pt continued to have pain, so did not attempt further palpation. Prolapse Urethrocele Grade 1 Prolapse Comments unable to assess for rectocele /cystocele due to pt pain. Comments Pelvic Floor Comments Unable to assess pt strength due to pt tolerance of internal assessment PT-OP-Q Treatments Start: 09/05/22 20:22 Freq: Status: Active Protocol: Document 11/04/22 13:49 AMB (Rec: 11/04/22 14:52 AMB [id number]) Therapeutic Exercises Supine Exercises hip flexor stretch Supine Exercise Name bilateral Reps/Minutes 30x2 piriformis stretch Reps/Minutes 30x2 Standing Exercises hamstring against wall Reps/Minutes 30x2 Other Exercises cat cow Reps/Minutes 20 Manual Therapy Treatment Soft Tissue Mobilization internal Comments Able to tolerate more internal TrP release, was able to work on obterator internus today. Continued to encourage relaxation/breathing techniques. PT-OP-T Assessment and Plan Start: 09/05/22 20:22 Freq: Status: Active Protocol: Document 11/04/22 13:49 AMB (Rec: 11/04/22 14:52 AMB [id number]) Physical Therapy Assessment Goals Two Impairment stress incontinence Short Term Goal (STG) Taniya will be independent with a HEP for her pelvic pain and incontinence. STG Duration 6 weeks Science Professor Goal (LTG) Taniya will be able to cough without leaking urine. LTG Duration 12 weeks One Impairment dyspareunia Short Term Goal (STG) Taniya will be able to insert an internal electrode for biofeedback with 3/10 pain or less. STG Duration 6 weeks Science Professor Goal (LTG) Taniya will engage in the intercourse of her choice with 3/10 pain or less. PROGRESS MADE: LTG Duration 12 weeks Assessment Summary Assessment Taniya is tolerating more internal work, continues to have most tenderness from 7-8 oclock. Overall improving, although urethra continues to be quite tender. Physical Therapy Plan Frequency and Duration Frequency of Treatment 2x/Week Duration of treatment (weeks) 10 Plan of Care Start Date 11/01/22 Plan of Care End Date 01/10/23 Therapeutic Interventions Therapeutic Interventions Manual Therapy,Neuromuscular Re-education,Self-Care/Home Management,Therapeutic Activities,Therapeutic Exercises Modalities Biofeedback,Electric Stimulation Next Visit Focus/Plan Next Note Type Treatment Note Next Visit Plan Begin with hip opening stretches, relaxation techniques, progress to manual therapy
--- NOTE | 2022-11-08 16:00 | PT.OTN ---
Current Diagnoses Dyspareunia not due to a substance or known physiological condition (11/08/22) Other specified disorders of muscle (11/08/22) Other specified disorders of urethra (11/08/22) Stress incontinence (female) (male) (11/08/22) Physical Therapy Treatment Note PT-OP-A Visit Information Start: 09/05/22 20:22 Freq: Status: Active Protocol: Document 11/08/22 13:07 AMB (Rec: 11/08/22 14:31 AMB [id number]) Out-Patient Physical Therapy Visit Information Visit Information Visit Type Treatment Note Visit Start Time 13:00 Visit Stop Time 13:45 Total Visit Minutes 45 Visit Number 9 PT-OP-B Current Condition Start: 09/05/22 20:22 Freq: Status: Active Protocol: Document 09/06/22 10:00 AMB (Rec: 09/06/22 10:19 AMB [id number]) Current Condition History of Current Condition Onset Date February 2022 Current Complaints dyspareunia History of Current Condition Taniya has had painful intercourse since the of her baby in February, she has been able to have intercourse only once, and has tried multiple times. Did try dilators, but then stopped due to feeling it wasn't really helping. Sharp pain (R) over scar. Painful intercourse. Has not been doing kegels. Urethral prolapse was just recently diagnosed by urology. Was put on estrogen which she reports she doesn't like much because it has increased vaginal secretions. Personal Factors Other Personal Factors That May Effect stress/anxiety, neck pain Therapy/Recovery PT-OP-C Subjective Start: 09/05/22 20:22 Freq: Status: Active Protocol: Document 11/08/22 13:07 AMB (Rec: 11/08/22 14:31 AMB [id number]) OP-PT Subjective Patient Comments Patient Comments Sore for about 30 minutes PT-OP-I Pelvic Floor Start: 09/05/22 20:22 Freq: Status: Active Protocol: Document 09/06/22 15:05 AMB (Rec: 09/06/22 15:13 AMB [id number]) Pelvic Floor Assessment Urine Pelvic Floor Surgery Yes: Urinary Symptoms Dribbling After Urination,Pain Leakage Size Small Leakage Cause Cough,Sneeze Bowel Other Bowel Symptoms denies constipation/straining Pelvic Clock Pelvic Clock 12-3 Tightness Pelvic Clock 3-6 Tightness Pelvic Clock 6-9 Tightness Pelvic Clock 9-12 Tightness Pelvic Clock Other Inserted finger to DIP with significant time spent. Pt with pain with palpation at most superficial musculature, could not palpate levator ani or obturators due to patient pain. Educated pt that was trying to palpate at perineum at 6 oclock, far away from urethra, but pt continued to have pain, so did not attempt further palpation. Prolapse Urethrocele Grade 1 Prolapse Comments unable to assess for rectocele /cystocele due to pt pain. Comments Pelvic Floor Comments Unable to assess pt strength due to pt tolerance of internal assessment PT-OP-Q Treatments Start: 09/05/22 20:22 Freq: Status: Active Protocol: Document 11/08/22 13:00 AMB (Rec: 11/10/22 09:53 AMB [id number]) Therapeutic Exercises Supine Exercises hip flexor stretch Supine Exercise Name bilateral Reps/Minutes 30x2 piriformis stretch Reps/Minutes 30x2 butterfly- legs on wall Reps/Minutes 30x2 Manual Therapy Treatment Soft Tissue Mobilization internal Comments Able to tolerate more internal TrP release, at beginning of session, but then had very much increased pain on the left in 7-8 oclock region so had to stop internal work at that time. PT-OP-T Assessment and Plan Start: 09/05/22 20:22 Freq: Status: Active Protocol: Document 11/08/22 13:07 AMB (Rec: 11/08/22 14:31 AMB [id number]) Physical Therapy Assessment Goals Two Impairment stress incontinence Short Term Goal (STG) Taniya will be independent with a HEP for her pelvic pain and incontinence. STG Duration 6 weeks Care Home Goal (LTG) Taniya will be able to cough without leaking urine. LTG Duration 12 weeks One Impairment dyspareunia Short Term Goal (STG) Taniya will be able to insert an internal electrode for biofeedback with 3/10 pain or less. STG Duration 6 weeks Night Coordinator Goal (LTG) Taniya will engage in the intercourse of her choice with 3/10 pain or less. PROGRESS MADE: LTG Duration 12 weeks Assessment Summary Assessment Pt was really sore wiht manual today. Pt had increased soreness, continues to have pain with internal especially when moving from one muscle to another, or rotation. Stopped today due to increased pain on the left. Physical Therapy Plan Frequency and Duration Frequency of Treatment 2x/Week Duration of treatment (weeks) 10 Plan of Care Start Date 11/01/22 Plan of Care End Date 01/10/23 Therapeutic Interventions Therapeutic Interventions Manual Therapy,Neuromuscular Re-education,Self-Care/Home Management,Therapeutic Activities,Therapeutic Exercises Modalities Biofeedback,Electric Stimulation Next Visit Focus/Plan Next Note Type Treatment Note Next Visit Plan Begin with hip opening stretches, relaxation techniques, progress to manual therapy
--- NOTE | 2022-11-11 16:06 | PT.OTN ---
Current Diagnoses Dyspareunia not due to a substance or known physiological condition (11/11/22) Other specified disorders of muscle (11/11/22) Other specified disorders of urethra (11/11/22) Stress incontinence (female) (male) (11/11/22) Physical Therapy Treatment Note PT-OP-A Visit Information Start: 09/05/22 20:22 Freq: Status: Active Protocol: Document 11/11/22 13:02 AMB (Rec: 11/11/22 13:46 AMB [id number]) Out-Patient Physical Therapy Visit Information Visit Information Visit Type Treatment Note Visit Start Time 13:00 Visit Stop Time 13:45 Total Visit Minutes 45 Visit Number 10 PT-OP-B Current Condition Start: 09/05/22 20:22 Freq: Status: Active Protocol: Document 09/06/22 10:00 AMB (Rec: 09/06/22 10:19 AMB [id number]) Current Condition History of Current Condition Onset Date February 2022 Current Complaints dyspareunia History of Current Condition Taniya has had painful intercourse since the of her baby in February, she has been able to have intercourse only once, and has tried multiple times. Did try dilators, but then stopped due to feeling it wasn't really helping. Sharp pain (R) over scar. Painful intercourse. Has not been doing kegels. Urethral prolapse was just recently diagnosed by urology. Was put on estrogen which she reports she doesn't like much because it has increased vaginal secretions. Personal Factors Other Personal Factors That May Effect stress/anxiety, neck pain Therapy/Recovery PT-OP-C Subjective Start: 09/05/22 20:22 Freq: Status: Active Protocol: Document 11/11/22 13:02 AMB (Rec: 11/11/22 13:46 AMB [id number]) OP-PT Subjective Patient Comments Patient Comments Sore for 2 hours after last visit. PT-OP-I Pelvic Floor Start: 09/05/22 20:22 Freq: Status: Active Protocol: Document 09/06/22 15:05 AMB (Rec: 09/06/22 15:13 AMB [id number]) Pelvic Floor Assessment Urine Pelvic Floor Surgery Yes: Urinary Symptoms Dribbling After Urination,Pain Leakage Size Small Leakage Cause Cough,Sneeze Bowel Other Bowel Symptoms denies constipation/straining Pelvic Clock Pelvic Clock 12-3 Tightness Pelvic Clock 3-6 Tightness Pelvic Clock 6-9 Tightness Pelvic Clock 9-12 Tightness Pelvic Clock Other Inserted finger to DIP with significant time spent. Pt with pain with palpation at most superficial musculature, could not palpate levator ani or obturators due to patient pain. Educated pt that was trying to palpate at perineum at 6 oclock, far away from urethra, but pt continued to have pain, so did not attempt further palpation. Prolapse Urethrocele Grade 1 Prolapse Comments unable to assess for rectocele /cystocele due to pt pain. Comments Pelvic Floor Comments Unable to assess pt strength due to pt tolerance of internal assessment PT-OP-Q Treatments Start: 09/05/22 20:22 Freq: Status: Active Protocol: Document 11/11/22 16:02 AMB (Rec: 11/11/22 16:04 AMB [id number]) Therapeutic Exercises Supine Exercises hip flexor stretch Supine Exercise Name bilateral Reps/Minutes 30x2 butterfly- legs on wall Reps/Minutes 30x2 Other Exercises cat cow Reps/Minutes 20 Manual Therapy Treatment Soft Tissue Mobilization scar Body Location cupping Intensity/Depth Moderate Body Position Supine Comments tender, especially over the most central section PT-OP-T Assessment and Plan Start: 09/05/22 20:22 Freq: Status: Active Protocol: Document 11/11/22 13:02 AMB (Rec: 11/11/22 13:46 AMB [id number]) Physical Therapy Assessment Goals Two Impairment stress incontinence Short Term Goal (STG) Taniya will be independent with a HEP for her pelvic pain and incontinence. STG Duration 6 weeks Auto Body Service Mechanic Goal (LTG) Taniya will be able to cough without leaking urine. LTG Duration 12 weeks One Impairment dyspareunia Short Term Goal (STG) Taniya will be able to insert an internal electrode for biofeedback with 3/10 pain or less. STG Duration 6 weeks Auto Body Service Mechanic Goal (LTG) Taniya will engage in the intercourse of her choice with 3/10 pain or less. PROGRESS MADE: LTG Duration 12 weeks Assessment Summary Assessment Pt to hold on dilator for now given pt's pain after last visit. Pt did have significant sensitivity at C- section scar. Instructed in home self mobilization. Physical Therapy Plan Frequency and Duration Frequency of Treatment 2x/Week Duration of treatment (weeks) 10 Plan of Care Start Date 11/01/22 Plan of Care End Date 01/10/23 Therapeutic Interventions Therapeutic Interventions Manual Therapy,Neuromuscular Re-education,Self-Care/Home Management,Therapeutic Activities,Therapeutic Exercises Modalities Biofeedback,Electric Stimulation Next Visit Focus/Plan Next Note Type Treatment Note Next Visit Plan Begin with hip opening stretches, relaxation techniques, progress to manual therapy
--- NOTE | 2022-11-15 16:00 | PT.OTN ---
Current Diagnoses Dyspareunia not due to a substance or known physiological condition (11/15/22) Other specified disorders of muscle (11/15/22) Other specified disorders of urethra (11/15/22) Stress incontinence (female) (male) (11/15/22) Physical Therapy Treatment Note PT-OP-A Visit Information Start: 09/05/22 20:22 Freq: Status: Active Protocol: Document 11/15/22 13:04 AMB (Rec: 11/15/22 13:50 AMB [id number]) Out-Patient Physical Therapy Visit Information Visit Information Visit Type Treatment Note Visit Start Time 13:00 Visit Stop Time 13:45 Total Visit Minutes 45 Visit Number 11 PT-OP-B Current Condition Start: 09/05/22 20:22 Freq: Status: Active Protocol: Document 09/06/22 10:00 AMB (Rec: 09/06/22 10:19 AMB [id number]) Current Condition History of Current Condition Onset Date February 2022 Current Complaints dyspareunia History of Current Condition Taniya has had painful intercourse since the of her baby in February, she has been able to have intercourse only once, and has tried multiple times. Did try dilators, but then stopped due to feeling it wasn't really helping. Sharp pain (R) over scar. Painful intercourse. Has not been doing kegels. Urethral prolapse was just recently diagnosed by urology. Was put on estrogen which she reports she doesn't like much because it has increased vaginal secretions. Personal Factors Other Personal Factors That May Effect stress/anxiety, neck pain Therapy/Recovery PT-OP-C Subjective Start: 09/05/22 20:22 Freq: Status: Active Protocol: Document 11/15/22 13:04 AMB (Rec: 11/15/22 13:50 AMB [id number]) OP-PT Subjective Patient Comments Patient Comments Continues to have urethral pain PT-OP-I Pelvic Floor Start: 09/05/22 20:22 Freq: Status: Active Protocol: Document 09/06/22 15:05 AMB (Rec: 09/06/22 15:13 AMB [id number]) Pelvic Floor Assessment Urine Pelvic Floor Surgery Yes: Urinary Symptoms Dribbling After Urination,Pain Leakage Size Small Leakage Cause Cough,Sneeze Bowel Other Bowel Symptoms denies constipation/straining Pelvic Clock Pelvic Clock 12-3 Tightness Pelvic Clock 3-6 Tightness Pelvic Clock 6-9 Tightness Pelvic Clock 9-12 Tightness Pelvic Clock Other Inserted finger to DIP with significant time spent. Pt with pain with palpation at most superficial musculature, could not palpate levator ani or obturators due to patient pain. Educated pt that was trying to palpate at perineum at 6 oclock, far away from urethra, but pt continued to have pain, so did not attempt further palpation. Prolapse Urethrocele Grade 1 Prolapse Comments unable to assess for rectocele /cystocele due to pt pain. Comments Pelvic Floor Comments Unable to assess pt strength due to pt tolerance of internal assessment PT-OP-Q Treatments Start: 09/05/22 20:22 Freq: Status: Active Protocol: Document 11/15/22 13:04 AMB (Rec: 11/15/22 13:50 AMB [id number]) Therapeutic Exercises Supine Exercises hip flexor stretch Supine Exercise Name bilateral Reps/Minutes 30x2 Manual Therapy Treatment Soft Tissue Mobilization scar Body Location cupping Intensity/Depth Moderate Body Position Supine Comments tender, especially over the most central section internal Comments Able to tolerate more internal TrP release, at beginning of session. PT-OP-T Assessment and Plan Start: 09/05/22 20:22 Freq: Status: Active Protocol: Document 11/15/22 13:04 AMB (Rec: 11/15/22 13:50 AMB [id number]) Physical Therapy Assessment Goals Two Impairment stress incontinence Short Term Goal (STG) Taniya will be independent with a HEP for her pelvic pain and incontinence. STG Duration 6 weeks Mcfp Goal (LTG) Taniya will be able to cough without leaking urine. LTG Duration 12 weeks One Impairment dyspareunia Short Term Goal (STG) Taniya will be able to insert an internal electrode for biofeedback with 3/10 pain or less. STG Duration 6 weeks Mcfp Goal (LTG) Taniya will engage in the intercourse of her choice with 3/10 pain or less. PROGRESS MADE: LTG Duration 12 weeks Assessment Summary Assessment Pt with increased pelvic floor tone, doing well with C- section work. Encouraged in continued stretching and C- section self manual. Physical Therapy Plan Frequency and Duration Frequency of Treatment 2x/Week Duration of treatment (weeks) 10 Plan of Care Start Date 11/01/22 Plan of Care End Date 01/10/23 Therapeutic Interventions Therapeutic Interventions Manual Therapy,Neuromuscular Re-education,Self-Care/Home Management,Therapeutic Activities,Therapeutic Exercises Modalities Biofeedback,Electric Stimulation Next Visit Focus/Plan Next Visit Plan Address adhesions, L >R pelvic floor dysfunction.
--- NOTE | 2023-02-26 14:21 | PT.OPDS ---
Current Diagnoses Dyspareunia not due to a substance or known physiological condition (11/15/22) Other specified disorders of muscle (11/15/22) Other specified disorders of urethra (11/15/22) Stress incontinence (female) (male) (11/15/22) Visit Care Team Role Provider Type Danielle Joseph MD Attending Provider Physician Family Provider Primary Care Provider Referring Provider Specialty: Family Practice Address: [address] [place] [address], [facility] Email: [email or web address] Visit Number Visit Number 11 Discharge Summary PT-OP-B Current Condition Start: 09/05/22 20:22 Freq: Status: Active Protocol: Document 09/06/22 10:00 AMB (Rec: 09/06/22 10:19 AMB [id number]) Current Condition History of Current Condition Onset Date February 2022 Current Complaints dyspareunia History of Current Condition Taniya has had painful intercourse since the of her baby in February, she has been able to have intercourse only once, and has tried multiple times. Did try dilators, but then stopped due to feeling it wasn't really helping. Sharp pain (R) over scar. Painful intercourse. Has not been doing kegels. Urethral prolapse was just recently diagnosed by urology. Was put on estrogen which she reports she doesn't like much because it has increased vaginal secretions. Personal Factors Other Personal Factors That May Effect stress/anxiety, neck pain Therapy/Recovery PT-OP-C Subjective Start: 09/05/22 20:22 Freq: Status: Active Protocol: Document 11/15/22 13:04 AMB (Rec: 11/15/22 13:50 AMB [id number]) OP-PT Subjective Patient Comments Patient Comments Continues to have urethral pain PT-OP-I Pelvic Floor Start: 09/05/22 20:22 Freq: Status: Active Protocol: Document 09/06/22 15:05 AMB (Rec: 09/06/22 15:13 AMB [id number]) Pelvic Floor Assessment Urine Pelvic Floor Surgery Yes: Urinary Symptoms Dribbling After Urination,Pain Leakage Size Small Leakage Cause Cough,Sneeze Bowel Other Bowel Symptoms denies constipation/straining Pelvic Clock Pelvic Clock 12-3 Tightness Pelvic Clock 3-6 Tightness Pelvic Clock 6-9 Tightness Pelvic Clock 9-12 Tightness Pelvic Clock Other Inserted finger to DIP with significant time spent. Pt with pain with palpation at most superficial musculature, could not palpate levator ani or obturators due to patient pain. Educated pt that was trying to palpate at perineum at 6 oclock, far away from urethra, but pt continued to have pain, so did not attempt further palpation. Prolapse Urethrocele Grade 1 Prolapse Comments unable to assess for rectocele /cystocele due to pt pain. Comments Pelvic Floor Comments Unable to assess pt strength due to pt tolerance of internal assessment PT-OP-T Assessment and Plan Start: 09/05/22 20:22 Freq: Status: Active Protocol: Document 02/26/23 14:20 AMB (Rec: 02/26/23 14:21 [facility] [id number]) Physical Therapy Assessment Goals Two Impairment stress incontinence Short Term Goal (STG) Taniya will be independent with a HEP for her pelvic pain and incontinence. STG Duration MET Detention Goal (LTG) Taniya will be able to cough without leaking urine. LTG Duration NOT MET One Impairment dyspareunia Short Term Goal (STG) Taniya will be able to insert an internal electrode for biofeedback with 3/10 pain or less. STG Duration 6 weeks Detention Goal (LTG) Taniya will engage in the intercourse of her choice with 3/10 pain or less. PROGRESS MADE: LTG Duration 12 weeks Assessment Summary Assessment taniya took a break from PT to travel back home to visit family and did not return to PT after that. At her last visit she continued ot have increased pelvic floor tone, and was doing well with self manual for her Csection. Physical Therapy Plan Discharge Physical Therapy Discharge Reasons No Longer Attending PT
== END 2023-02-27 11:25 | disposition home or self-care (01) ==
LOC: PHYS 13:00
PROVIDERS: Absent Provider Family Medicine; Family Provider Family Medicine; PCP Family Medicine; Referring Provider Family Medicine; Visit Provider Family Medicine
DX: N36.8 Other specified disorders of urethra (principal); M62.89 Other specified disorders of muscle; F52.6 Dyspareunia not due to a substance or known physiological condition; N39.3 Stress incontinence (female) (male)
CPT/HCPCS: 97110; 97112; 97140; 97161